=== PATIENT | male | born 1965 | race Caucasian/White ===

== ENCOUNTER → 2021-06-30 11:18 | Outpatient (BNVA) | payer OTHER, SELFPAY | PROVIDERS: PCP Family Medicine; Visit Provider Nurse Practitioner Family | DX: I50.9 Heart failure, unspecified (principal) | CPT/HCPCS: 80048 ==

== ENCOUNTER → 2021-08-12 16:11 | Outpatient (BNVA) | payer OTHER, SELFPAY | PROVIDERS: PCP Family Medicine; Visit Provider Nurse Practitioner Family | DX: I50.9 Heart failure, unspecified (principal); I26.92 Saddle embolus of pulmonary artery without acute cor pulmonale; I26.99 Other pulmonary embolism without acute cor pulmonale | CPT/HCPCS: 80048; 83880 ==

== ENCOUNTER 2021-09-08 11:25 | Outpatient (CLI) | payer OTHER, SELFPAY ==
--- NOTE | 2021-09-08 11:00 | USCV_ITS ---
Rahat Ashley Age: 56 Gender: M : 1965 Exam Date: 09/08/2021 11:41 Ordering Phys: Emely Mora Technologist: REI Exam Location: [facility] – [place] Indication: HISTORY OF SADDLE PE HISTORY: History of PE PROCEDURES: The venous duplex Doppler examination of both lower extremities was performed in the standard fashion. The following venous structures were evaluated: common femoral vein, profunda vein, proximal portion of the greater saphenous vein, superficial femoral vein, and the popliteal vein. In addition, the posterior tibial and peroneal trunk were evaluated. Serial compression, augmentation maneuvers, and spectral Doppler flow evaluation were performed. FINDINGS: .Evidence of acute partial deep vein thrombosis in the left common femoral vein throught the popliteal vein. Evidence of acute occlusive deep vein thrombosis in the left posterior tibial vein with abnormal flow dynamics. Normal 2-D Doppler and augmentation and compressibility throughout the right lower extremity venous structures. Additional imaging through the proximal calf veins also reveals no thrombus. Limited evaluation of the greater saphenous vein is patent with no thrombus.. Prelim to Dr. Pruett. CONCLUSIONS Acute left lower extremity deep venous thrombosis. Dr. Charlene Morales DO (Electronically Signed) Final Date: 08 September 2021 13:19 S
== END 2021-09-08 11:26 | disposition home or self-care (01) ==
PROVIDERS: PCP Family Medicine; Visit Provider Nurse Practitioner Family
DX: I26.92 Saddle embolus of pulmonary artery without acute cor pulmonale (principal); I82.402 Acute embolism and thrombosis of unspecified deep veins of left lower extremity
CPT/HCPCS: 93970

== ENCOUNTER 2021-09-09 09:24 | Outpatient (CLI) | payer OTHER, SELFPAY ==
--- NOTE | 2021-09-09 09:30 | USCV_ITS ---
Rahat Ashley Age: 56 Gender: M : 1965 Exam Date: 09/09/2021 09:53 Ordering Phys: Trevor Pruett MD ([email or web address]) Technologist: Exam Location: [facility] [place] Indication: HEART SIZE AFIF BP: 130 / 80 HR: 91 Rhythm: Sinus Technical Quality: Adequate MEASUREMENTS (Male / Female) Normal Values 2D ECHO LV Diastolic Diameter PLAX 4.6 cm 4.2 - 5.9 / 3.9 - 5.3 cm LV Systolic Diameter PLAX 2.9 cm IVS Diastolic Thickness 1.0 cm 0.6 - 1.0 / 0.6 - 0.9 cm IVS Systolic Thickness 1.3 cm LVPW Diastolic Thickness 0.9 cm 0.6 - 1.0 / 0.6 - 0.9 cm LVPW Systolic Thickness 1.7 cm LVOT Diameter 2.0 cm LV Ejection Fraction 2D Teich 66.3 % LV Ejection Fraction MOD 2C 68.6 % LV Ejection Fraction 2C AL 67.8 % LA Diameter 5.0 cm LA Width 4.0 cm LA Height 5.6 cm RA Width 4.3 cm RA Height 6.3 cm M-MODE Aortic Annulus Diameter 3.6 cm LA Ao Ratio MM 1.5 MV E Point Septal Separation 0.8 cm DOPPLER AV Peak Velocity 178.0 cm/s LVOT Peak Velocity 106.0 cm/s AV Area Cont Eq vti 2.3 cm squared AV Area Cont Eq pk 1.9 cm squared MV Area PHT 5.0 cm squared Mitral E to A Ratio 1.6 MV E' Velocity 143.0 cm/s TR Peak Velocity 192.4 cm/s TR Peak Gradient 14.8 mmHg TV Peak E Velocity 113.0 cm/s Right Atrial Pressure 3.0 mmHg Pulmonary Artery Systolic Pressu 17.8 mmHg FINDINGS Left Ventricle Normal left ventricular cavity size. Normal left ventricular systolic function. No regional wall motion abnormalities. Left ventricular ejection fraction is estimated at 66 %. In the presence of atrial fibrillation diastolic function cannot be assessed accurately. Right Ventricle The right ventricle is normal in size and function. Right Atrium Moderately increased right atrial size. Left Atrium Moderately increased left atrial size. Mitral Valve Structurally normal mitral valve without significant stenosis or prolapse. Moderate mitral valve regurgitation. Aortic Valve Moderate aortic valve calcification. Mild aortic valve stenosis, mean gradient 6 mmHg, SHARRI 2.3 cm squared. No aortic valve regurgitation. Tricuspid Valve Structurally normal tricuspid valve without significant stenosis , trace regurgitation. Pulmonary artery systolic pressure is normal. Pulmonic Valve Structurally normal pulmonic valve without significant stenosis. There is no pulmonic regurgitation. Pericardium Normal pericardium without effusion. Aorta Normal ascending aorta dimension. CONCLUSIONS 1-Normal left ventricular cavity size. Normal left ventricular systolic function. No regional wall motion abnormalities. Left ventricular ejection fraction is estimated at 66 %. In the presence of atrial fibrillation diastolic function cannot be assessed accurately. 2-Moderate biatrial enlargement 3-Moderate aortic valve calcification. Mild aortic valve stenosis, mean gradient 6 mmHg, SHARRI 2.3 cm squared. No aortic valve regurgitation. 4-Structurally normal mitral valve without significant stenosis or prolapse. Moderate mitral valve regurgitation. 5-Moderate aortic valve calcification. Mild aortic valve stenosis, mean gradient 6 mmHg, SHARRI 2.3 cm squared. No aortic valve regurgitation. 6-Structurally normal tricuspid valve without significant stenosis , trace regurgitation. Pulmonary artery systolic pressure is normal. 7-There is no pericardial effusion. 8-Right atrial pressure is around 5 mm of mercury. 9-There are no prior echocardiogram studies to compare. Trevor Pruett MD (Electronically Signed) Final Date: 09 September 2021 17:32 S
== END 2021-09-09 09:25 | disposition home or self-care (01) ==
LOC: RAD 09:24
PROVIDERS: PCP Family Medicine; Visit Provider Internal Medicine Cardiovascular Disease
DX: R06.02 Shortness of breath (principal); R00.2 Palpitations; I08.3 Combined rheumatic disorders of mitral, aortic and tricuspid valves
CPT/HCPCS: 93306

== ENCOUNTER 2021-09-13 09:41 | Outpatient (CLI) | payer OTHER, SELFPAY ==
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
== END 2021-09-13 09:42 | disposition home or self-care (01) ==
LOC: RAD 09:42
PROVIDERS: PCP Family Medicine; Visit Provider Nurse Practitioner Family
DX: S81.801A Unspecified open wound, right lower leg, initial encounter (principal); X58.XXXA Exposure to other specified factors, initial encounter; F17.210 Nicotine dependence, cigarettes, uncomplicated
CPT/HCPCS: 93925

== ENCOUNTER → 2021-11-02 15:06 | Outpatient (BNVA) | payer OTHER, SELFPAY | PROVIDERS: PCP Family Medicine; Visit Provider Internal Medicine | DX: I48.91 Unspecified atrial fibrillation (principal); I11.0 Hypertensive heart disease with heart failure; I50.9 Heart failure, unspecified; F17.210 Nicotine dependence, cigarettes, uncomplicated | CPT/HCPCS: 99214 ==

== ENCOUNTER → 2022-01-12 08:46 | Outpatient (BNVA) | payer OTHER, SELFPAY | PROVIDERS: PCP Family Medicine; Referring Provider Family Medicine; Visit Provider Internal Medicine | DX: E13.9 Other specified diabetes mellitus without complications (principal); E78.2 Mixed hyperlipidemia; G62.9 Polyneuropathy, unspecified; E34.9 Endocrine disorder, unspecified; Z86.711 Personal history of pulmonary embolism; F17.210 Nicotine dependence, cigarettes, uncomplicated; Z79.84 Long term (current) use of oral hypoglycemic drugs; Z79.4 Long term (current) use of insulin | CPT/HCPCS: 36415; 82947; 84681; 99204 ==

== ENCOUNTER → 2022-01-28 09:04 | Outpatient (BNVA) | payer OTHER, SELFPAY | PROVIDERS: PCP Family Medicine; Visit Provider Internal Medicine | DX: E13.9 Other specified diabetes mellitus without complications (principal); E78.2 Mixed hyperlipidemia; G62.9 Polyneuropathy, unspecified; E34.9 Endocrine disorder, unspecified; Z86.711 Personal history of pulmonary embolism; Z79.84 Long term (current) use of oral hypoglycemic drugs; F17.210 Nicotine dependence, cigarettes, uncomplicated; Z79.4 Long term (current) use of insulin | CPT/HCPCS: 99214 ==

== ENCOUNTER → 2022-03-15 13:05 | Outpatient (BNVA) | payer OTHER, SELFPAY | PROVIDERS: PCP Family Medicine; Visit Provider Internal Medicine | DX: I48.91 Unspecified atrial fibrillation (principal); I11.0 Hypertensive heart disease with heart failure; I50.9 Heart failure, unspecified; Z87.891 Personal history of nicotine dependence; R00.2 Palpitations | CPT/HCPCS: 80048; 83880; 99214 ==

== ENCOUNTER 2022-05-02 08:07 | Outpatient (CLI) | payer OTHER, SELFPAY ==
--- NOTE | 2022-05-02 08:00 | USCV_ITS ---
Rahat Ashley Age: 56 Gender: M : 1965 Exam Date: 05/02/2022 08:22 Ordering Phys: Domingo Morelos M.D ([email or web address]) Technologist: Makenzie Damon Exam Location: [facility] [place] Indication: hypertension BP: 127 / 84 HR: 89 Rhythm: Atrial fibrillation Technical Quality: Adequate MEASUREMENTS (Male / Female) Normal Values 2D ECHO LV Diastolic Diameter PLAX 4.2 cm 4.2 - 5.9 / 3.9 - 5.3 cm LV Systolic Diameter PLAX 2.3 cm IVS Diastolic Thickness 1.6 cm 0.6 - 1.0 / 0.6 - 0.9 cm IVS Systolic Thickness 2.1 cm LVPW Diastolic Thickness 1.3 cm 0.6 - 1.0 / 0.6 - 0.9 cm LVPW Systolic Thickness 1.9 cm LVOT Diameter 2.0 cm LV Ejection Fraction 2D Teich 75.8 % LV Ejection Fraction MOD 2C 50.9 % LV Ejection Fraction 2C AL 52.1 % LA Diameter 4.9 cm LA Width 4.1 cm LA Height 6.1 cm RA Width 4.2 cm RA Height 5.5 cm Aorta at Sinotubular Diameter 3.0 cm IVC Diameter 1.9 cm M-MODE MV E Point Septal Separation 0.4 cm DOPPLER AV Peak Velocity 140.0 cm/s LVOT Peak Velocity 85.0 cm/s AV Area Cont Eq vti 2.5 cm squared AV Area Cont Eq pk 2.0 cm squared MV Peak Velocity 133.0 cm/s MV Area PHT 4.0 cm squared Mitral E to A Ratio 7.8 MV E' Velocity 72.0 cm/s Mitral E to MV E' Ratio 13.6 Mitral E to LV E' Lateral Ratio 10.8 Mitral E to LV E' Septal Ratio 18.6 TR Peak Velocity 69.0 cm/s TR Peak Gradient 1.9 mmHg Right Atrial Pressure 3.0 mmHg Pulmonary Artery Systolic Pressu 4.9 mmHg PV Peak Velocity 73.0 cm/s RV Acceleration Time 0.1 s RV Ejection Time 0.3 s RV AcT/ET 0.4 FINDINGS Left Ventricle Left ventricle is normal in size. LV systolic function is normal with EF 55 to 60%. No regional wall motion abnormalities are seen Right Ventricle Normal in size and function Right Atrium Right atrium is normal in size Left Atrium Normal in size Mitral Valve Mild mitral annular calcification seen. Mild mitral regurgitation. No significant stenosis. Aortic Valve Aortic valve is normal structurally. No significant stenosis or regurgitation. Tricuspid Valve Trace tricuspid regurgitation. Insufficient TR jet to calculate RVSP Pulmonic Valve Nonvalvular Pericardium Normal Aorta Normal in size IVC IVC appears to be normal CONCLUSIONS LV systolic function normal with EF of 55 to 60%. Mild mitral annular calcification is seen. Mild mitral regurgitation Trace tricuspid regurgitation Comparison studies are available Domingo Morelos MD (Electronically Signed) Final Date: 14 May 2022 13:21 S
== END 2022-05-02 08:08 | disposition home or self-care (01) ==
LOC: RAD 08:08
PROVIDERS: PCP Family Medicine; Visit Provider Internal Medicine
DX: I10 Essential (primary) hypertension (principal); I08.1 Rheumatic disorders of both mitral and tricuspid valves
CPT/HCPCS: 93306

== ENCOUNTER → 2022-05-03 15:41 | Outpatient (BNVA) | payer OTHER, SELFPAY | PROVIDERS: PCP Family Medicine; Visit Provider Internal Medicine | DX: E11.9 Type 2 diabetes mellitus without complications (principal); E78.2 Mixed hyperlipidemia; G62.9 Polyneuropathy, unspecified; E34.9 Endocrine disorder, unspecified; Z86.711 Personal history of pulmonary embolism; F17.210 Nicotine dependence, cigarettes, uncomplicated; Z79.84 Long term (current) use of oral hypoglycemic drugs | CPT/HCPCS: 36415; 83036; 99214 ==

== ENCOUNTER → 2022-07-12 13:17 | Outpatient (BNVA) | payer OTHER, SELFPAY | PROVIDERS: PCP Family Medicine; Visit Provider Internal Medicine | DX: I48.91 Unspecified atrial fibrillation (principal); Z79.01 Long term (current) use of anticoagulants; I11.0 Hypertensive heart disease with heart failure; I50.9 Heart failure, unspecified; F17.210 Nicotine dependence, cigarettes, uncomplicated | CPT/HCPCS: 99214 ==

== ENCOUNTER 2022-09-29 11:55 | Outpatient (CLI) | payer OTHER, SELFPAY ==
--- NOTE | 2022-09-29 11:45 | MR_ITS ---
WS: [id number] MRI BRAIN WITHOUT AND WITH CONTRAST, ATTENTION DIRECTED TO THE PITUITARY GLAND HISTORY: pituitary gland abnormality COMPARISON: None available. TECHNIQUE: Diffusion-weighted imaging, axial T2 sequence, and postcontrast images in 3 planes are per formed. High-resolution coronal and sagittal imaging performed through the pituitary region with and without intravenous gadolinium. MultiHance 20 mL IV. Diffusion-weighted imaging is normal. Moderate T2 and FLAIR signal hyperintensities surrounding the l ateral ventricles and extending to the corpus callosum. Majority of these white matter lesions are pe rpendicular to the corpus callosum in a symmetric distribution. There are few at additional subcortic al white matter lesions. None of these lesions enhance. No significant atrophy and no prior infarct. The pituitary gland is normal size. No abnormal enhancement. Infundibulum and optic chiasm remain in normal positions. No enhancing mass is identified. Visualized koi of Allison with normal enhancement. Severe mucoperiosteal thickening throughout the LEFT maxillary sinus. No air-fluid levels. Mastoid ai r cells are clear. No calvarial lesions. MR/MR pituitary wo/w con* [id number] IMPRESSION: 1. No pituitary microadenoma or macroadenoma. Normal appearance of pituitary g land. 2. Periventricular and pericallosal white matter lesions. 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 Also within the different ial is small vessel ischemic disease. 3. No enhancing lesions are identified.
[2022-09-29] MEDS: gadobenate dimeglumine 20 mL vial IV (14:12)
== END 2022-09-29 11:56 | disposition home or self-care (01) ==
LOC: RAD 11:56
PROVIDERS: PCP Family Medicine; Visit Provider Internal Medicine
DX: E23.7 Disorder of pituitary gland, unspecified (principal)
CPT/HCPCS: 70553; A9577

== ENCOUNTER → 2023-01-10 15:07 | Outpatient (BNVA) | payer OTHER, SELFPAY | PROVIDERS: PCP Family Medicine; Visit Provider Internal Medicine | DX: E11.42 Type 2 diabetes mellitus with diabetic polyneuropathy (principal); E78.2 Mixed hyperlipidemia; E34.9 Endocrine disorder, unspecified; Z86.711 Personal history of pulmonary embolism; R90.82 White matter disease, unspecified; R00.0 Tachycardia, unspecified; Z79.84 Long term (current) use of oral hypoglycemic drugs | CPT/HCPCS: 36415; 80053; 80061; 82044; 83036; 84439; 84443; 84480; 99214 ==

== ENCOUNTER → 2023-01-11 15:42 | Outpatient (BNVA) | payer OTHER, SELFPAY | PROVIDERS: PCP Family Medicine; Visit Provider Internal Medicine | DX: I48.91 Unspecified atrial fibrillation (principal); Z79.01 Long term (current) use of anticoagulants; Z79.82 Long term (current) use of aspirin; I11.0 Hypertensive heart disease with heart failure; I50.9 Heart failure, unspecified; F17.210 Nicotine dependence, cigarettes, uncomplicated | CPT/HCPCS: 99214 ==

== ENCOUNTER → 2023-04-10 11:06 | Outpatient (BNVA) | payer OTHER, SELFPAY | PROVIDERS: PCP Family Medicine; Referring Provider Internal Medicine; Visit Provider Specialist | DX: R90.82 White matter disease, unspecified; I10 Essential (primary) hypertension; G95.9 Disease of spinal cord, unspecified; M54.12 Radiculopathy, cervical region; G37.9 Demyelinating disease of central nervous system, unspecified; E13.42 Other specified diabetes mellitus with diabetic polyneuropathy; Z79.84 Long term (current) use of oral hypoglycemic drugs; F17.210 Nicotine dependence, cigarettes, uncomplicated | CPT/HCPCS: 99204 ==

== ENCOUNTER → 2023-05-23 17:24 | Outpatient (BNVA) | payer OTHER, SELFPAY | PROVIDERS: PCP Family Medicine; Referring Provider Family Medicine; Visit Provider Internal Medicine Pulmonary Disease | DX: R91.8 Other nonspecific abnormal finding of lung field (principal); R91.1 Solitary pulmonary nodule; Z86.711 Personal history of pulmonary embolism; F17.210 Nicotine dependence, cigarettes, uncomplicated; Z79.01 Long term (current) use of anticoagulants | CPT/HCPCS: 36415; 99204 ==

== ENCOUNTER 2023-06-20 08:30 | Outpatient (CLI) | payer OTHER, SELFPAY ==
--- NOTE | 2023-06-20 08:30 | PETR_ITS ---
PROCEDURE INFORMATION: Exam: PET/CT Skull Base to Mid-thigh Exam date and time: 06/20/2023 9:37 AM Age: 57 years old Clinical indication: Abnormal findings; CT lung screen 02/14/2023; Additional info: Multiple pulmonary nodules LABS AND CLINICAL REPORTS: Glucose: 107 mg/dl Treatment strategy for malignancy (PET staging): Restaging (PS) TECHNIQUE: Imaging protocol: Following at least four-hour fasting and following the injection of radiopharmaceutical, low dose CT images were obtained. Then, PET images were obtained. Attenuation corrected images were constructed using the CT scan. Fused images of PET and CT were reviewed. The standardized uptake values (SUV) reported below are maximum values within a region of interest, expressed in gm/ml. Exam includes orbital meatal line to mid-thigh. Radiopharmaceutical: 11.56 mCi F-18 FDG (Fluorodeoxyglucose), IV. Time of imaging post radiopharmaceutical administration: 50.8 minutes. Injection site: Not specified. COMPARISON: 1. CT thoracic spin wo con* [id number] 05/11/2023. [facility] [place]. Images are available, but the report is not. 2. CT lung cancer screening 02/14/2023. [facility] [place]. Images are available, but the report is not. FINDINGS: Brain: Visualized brain has normal physiologic uptake. Pharynx: No abnormal uptake. Larynx: No abnormal uptake. Lungs, pleura and trachea: In the right upper lobe, at the inferolateral aspect of the posterior segment, a disc shaped soft tissue nodule causes upward retraction of the adjacent major fissure. On the comparison CT on 02/14/2023, it was 2.5 x 2.0 x 0.7 cm (measured on series 6, image 317 and series 7, image 306 of that study). Its size is unchanged on today's CT. It is not FDG avid. Its maximum SUV is only 0.8, which is consistent with scarring. The lungs are otherwise clear. No FDG avid pulmonary nodule. Heart: No cardiomegaly or pericardial effusion. Mediastinal space: No abnormal uptake. Liver: Hepatic cirrhotic morphology. The liver has a nodular contour. Caudate lobe is hypertrophied. No FDG avid hepatic mass. Gallbladder and bile ducts: No abnormal uptake. Pancreas: No abnormal uptake. Spleen: No abnormal uptake. Adrenal glands: No abnormal uptake. Kidneys and ureters: Normal physiologic uptake. Stomach and bowel: At the cecum, a focal area of FDG avidity has a maximum SUV of 12.7. It is approximately 1.9 x 3.5 x 2.8 cm (transverse x ant-post x craniocaudal) (image 191). Because there is no corresponding CT abnormality, it is most likely physiologic uptake at the ileocecal valve. Neoplasia cannot be excluded. Vasculature: Portal hypertension. A paraumbilical vein is recanalized adjacent to the falciform ligament. Lymph nodes: No abnormal uptake. No lymphadenopathy in the head, neck, chest, abdomen, pelvis or extremities. Bones/joints: No metabolically active areas. Soft tissues: No metabolically active areas. [id number] IMPRESSION: 1. In the right upper lobe, a stable disc shaped soft tissue nodule is 2.5 x 2.0 x 0.7 cm. It is not FDG avid. Its maximum SUV is only 0.8, which is consistent with scarring. It does not require imaging follow-up. 2. The lungs are otherwise clear. No FDG avid pulmonary nodule. 3. At the cecum, a focal area of FDG avidity is 1.9 x 3.5 x 2.8 cm. Its maximum SUV is 12.7. Because there is no corresponding CT abnormality, it is most likely physiologic uptake at the ileocecal valve, but neoplasia cannot be excluded. 4. Hepatic cirrhosis. No FDG avid hepatic mass. 5. Portal hypertension.
== END 2023-06-20 08:31 | disposition home or self-care (01) ==
LOC: RAD 06-21 08:23
PROVIDERS: PCP Family Medicine; Visit Provider Internal Medicine Pulmonary Disease
DX: R91.8 Other nonspecific abnormal finding of lung field (principal)
CPT/HCPCS: 78815; A9552

== ENCOUNTER 2023-07-19 08:10 | Outpatient (CLI) | payer OTHER, SELFPAY | END 2023-07-19 08:11 | disposition home or self-care (01) | LOC: RT 08:11 | PROVIDERS: PCP Family Medicine; Visit Provider Internal Medicine Pulmonary Disease | DX: J43.9 Emphysema, unspecified (principal) | CPT/HCPCS: 94010; 94618; 94726; 94729 ==

== ENCOUNTER → 2023-07-27 11:33 | Outpatient (BNVA) | payer OTHER, SELFPAY | PROVIDERS: PCP Family Medicine; Visit Provider Internal Medicine Cardiovascular Disease | DX: I11.0 Hypertensive heart disease with heart failure (principal); I50.9 Heart failure, unspecified; J43.9 Emphysema, unspecified; Z86.711 Personal history of pulmonary embolism; E13.9 Other specified diabetes mellitus without complications; F17.210 Nicotine dependence, cigarettes, uncomplicated; Z79.84 Long term (current) use of oral hypoglycemic drugs | CPT/HCPCS: 99214 ==

== ENCOUNTER 2023-08-03 14:17 | Emergency (ER) | payer OTHER, SELFPAY ==
[2023-08-03] VITALS (11 sets, daily range): BP systolic 114–183; BP diastolic 64–123; PULSE 85–98; RESP 15–18; TEMP 37.1; O2SAT 90–97
--- NOTE | 2023-08-03 14:23 | PC.PHAR ---
Addendum entered by Caitlyn Taylor 08/03/23 16:32: pt states he takes gabapentin 600mg takes 1200mg bid [facility] 600mg bid Addendum entered by Caitlyn Taylor 08/03/23 16:27: pt states he takes care of his own medications-pt states he was taking eliquis 5mg qam for a while but states the dr told him to go back to the 5mg bid today pt states had 5mg this am-pt states he takes lasix 80mg bid [facility] med list had 40mg qid prn-pt states he takes lisinopril 40mg daily [facility] med list has 20mg daily-pt states he takes kcl 20meq daily [facility] med list has 20meq daily prn-pt states he has a testosterone gel he uses every 2 days medication no on va med list-pt states he takes methocarbamol 750mg qam medication not on [facility] med list-pt states he takes metoprolol succinate er 200mg takes 100-200mg daily states he had a build up and told va to stop sending medication not on [facility] med list-unable to verify if pt really has from [facility] -notes are made in the pharmacy comments Original Note: faxed ct for med list
--- NOTE | 2023-08-03 14:33 | XR_ITS ---
WS: [id number] Left ankle, 3 views, 08/03/2023 Clinical Data: pain Comparison: None. Findings: There is an arthrodesis of the left ankle with an intramedullary clement extending from the distal third of the tibia into the talus. There is a longitudinal screw which extends through the calcaneus and into the distal intramedullary clement. There are old fractures of the distal left fibula and the medial malleolus. There is fragmentati on of the anterior calcaneus. The talonavicular articulation shows dissociation with the navicular el evated from its usual position. There is edema surrounding the ankle and proximal foot. Only the base of the left fifth metatarsal remains. Impression: 1. Arthrodesis of the left ankle with an intramedullary clement and orthopedic screws. 2. Old fractures of the medial malleolus and left fibula. 3. Fragmentation and dissociation of the bones of the mid and posterior foot.
--- NOTE | 2023-08-03 14:33 | ED_ITS ---
HPI - Extremity Problem 2 General: Chief complaint: Extremity Problem,Nontraumatic Stated complaint: Fever and chills/ Pain Time Seen by Provider: 08/03/23 14:23 [facility] ED 2 PFS: Medical History PETER (obstructive sleep apnea) Status post fracture of femur Carpal tunnel syndrome Saddle embolus of pulmonary artery HTN (hypertension), benign Atrial fibrillation CHF (congestive heart failure) Surgical History S/P hip replacement Family History Mother Cancer Hypertension Cataracts, bilateral Father Stroke CAD (coronary artery disease) Hypertension Social History Smoking and tobacco/nicotine status: current every day tobacco/nicotine user cigarettes Packs smoked per day: 1 Years cigarettes smoked: 31 [ Other cigarette details: Started at age 26] Alcohol intake: current Substance/Drug Use: current Other substance/drug use details: working no [employer] Course 2 Vital Signs: Vital signs: Vital Signs Temperature 98.8 F 08/03/23 14:29 Pulse Rate 93 08/03/23 18:01 Respiratory Rate 15 08/03/23 17:03 Blood Pressure 148/88 08/03/23 18:01 Pulse Oximetry 97 08/03/23 18:01 Oxygen Delivery Me thod Room Air 08/03/23 18:01 MDM - Extremity (Nontraumatic) Medical Decision Making Labs and imaging reviewed. Patient has a septic arthritis and involving the previous fracture and hardware in the left ankle. He had had this procedure done at [facility]. We have contacted [facility] clouded the images their orthopedist is reviewing them we are awaiting return call. Care signed out to Dr. Ríos at change of shift. See final notes for diagnosis and disposition. Medical Records I reviewed the patient's medical records. Lab Data I reviewed the patient's lab results. 08/03/23 14:39 08/03/23 14:39 Radiology Impressions Lower Extremity CT 08/03/23 15:26 IMPRESSION: 1. Extensive soft tissue gas in the heel, ankle joint, and within bone fragments of the fracture calcaneus. This is suspicious for soft tissue infection, septic ankle joint, and osteomyelitis in the calcaneus. Osteomyelitis within additional bones can not be excluded. MRI is more sensitive. 2. Sinus tract extending from the distal tip of the intramedullary clement to the plantar skin surface of the foot. 3. Non healed fractures involving the distal fibula, tibia, and calcaneus. 4. Extensive soft tissue edema/cellulitis in the lower leg, ankle, and foot. Laboratory Results WBC 11.29 10^3/uL (3.29-11.43) 08/03/23 14:39 RBC 5.30 10^6/uL (3.85-5.65) 08/03/23 14:39 Hgb 12.80 g/dL (11.27-16.99) 08/03/23 14:39 Hct 43.4 % (37-53) 08/03/23 14:39 MCV 81.9 fl (82-101) L 08/03/23 14:39 MCH 24.2 pg (27-33) L 08/03/23 14:39 MCHC 29.5 g/dL (30-55) L 08/03/23 14:39 RDW 21.8 % (12.1-15.1) H 08/03/23 14:39 Plt Count 386 10^3/cmm (157-399) 08/03/23 14:39 MPV 10.1 fL (7.4-10.4) 08/03/23 14:39 Neut % (Auto) 72.7 % 08/03/23 14:39 Lymph % (Auto) 17.6 % 08/03/23 14:39 [place] % (Auto) 7.8 % 08/03/23 14:39 Eos % (Auto) 1.2 % 08/03/23 14:39 Baso % (Auto) 0.4 % 08/03/23 14:39 Neut # (Auto) 8.20 10^3/uL (1.8-7.7) H 08/03/23 14:39 Lymph # (Auto) 2.0 10^3/uL (0.8-4.8) 08/03/23 14:39 [place] # (Auto) 0.9 10^3/uL (0.2-0.9) 08/03/23 14:39 Eos # (Auto) 0.1 10^3/uL (0.0-0.8) 08/03/23 14:39 Baso # (Auto) 0.1 10^3/uL (0.0-0.1) 08/03/23 14:39 Nucleated RBC % (auto) 0 % 08/03/23 14:39 Nucleated RBCs # 0.0 /100WBC 08/03/23 14:39 Sodium 131 mmol/L (136-145) L 08/03/23 14:39 Potassium 5.1 mmol/L (3.5-5.1) 08/03/23 14:39 Chloride 94 mmol/L (98-107) L 08/03/23 14:39 Carbon Dioxide 27 mmol/L (22-29) 08/03/23 14:39 Anion Gap 15.1 (5-19) 08/03/23 14:39 BUN 14 mg/dL (6-20) 08/03/23 14:39 Creatinine 1.0 mg/dL (0.7-1.2) 08/03/23 14:39 GFR Calculation 77.6 mL/min (90-130) L 08/03/23 14:39 Glucose 201 mg/dL (65-115) H 08/03/23 14:39 Calculated Osmolality 278 mOsm/kg (285-295) L 08/03/23 14:39 Calcium 8.8 mg/dL (8.5-10.5) 08/03/23 14:39 Total Bilirubin 1.0 mg/dL (0.15-1.2) 08/03/23 14:39 AST 24 U/L (0-40) 08/03/23 14:39 ALT 6 U/L (0-41) 08/03/23 14:39 Alkaline Phosphatase 147 U/L (40-130) H 08/03/23 14:39 Total Protein 7.4 g/dL (6.6-8.7) 08/03/23 14:39 Albumin 3.0 g/dL (3.5-5.2) L 08/03/23 14:39 Globulin 4.4 g/dL (1.3-4.6) 08/03/23 14:39 Discharge Plan Discharge Clinical Impression: Septic arthritis of left ankle, Osteomyelitis of ankle Condition: Stable Prescriptions: No Action cholecalciferol (vitamin D3) 50 mcg (2,000 unit) capsule 50 mcg PO QAM lisinopril 40 mg tablet 40 mg PO QAM magnesium oxide 400 mg magnesium capsule 400 mg PO QAM metoprolol succinate 200 mg tablet extended release 24 hr 100 - 200 mg PO DAILY albuterol sulfate 90 mcg/actuation HFA aerosol inhaler 2 puff inhalation Q6H PRN (Reason: shortness of breath or wheezing) Qty: 8.5 3RF furosemide 40 mg tablet 80 mg PO BID Eliquis 5 mg tablet 5 mg PO BID Qty: 60 3RF silver sulfadiazine 1 % Cream 1 applic TOPICAL DAILY PRN (Reason: unknown) gabapentin 600 mg Tablet 1,200 mg PO BID Fish Oil Concentrate 1,000 mg Capsule 1,000 mg PO BID Prilosec 40 mg Capsule,Delayed Release(Dr/Ec) 40 mg PO QAM sildenafil 100 mg Tablet 100 mg PO Q7D PRN (Reason: Erectile Dysfunction) Rx Instructions: limit 4 doses per month methocarbamol 750 mg Tablet 750 mg PO QAM metformin 500 mg Tablet Extended Release 24 Hr 500 mg PO QAM potassium chloride 20 mEq Tablet Extended Release 20 meq PO QAM alprostadil 10 mcg Syringe See Rx Instructions .ROUTE .COMPLEX Rx Instructions: 10 mcg intra-cavernosally as needed aspirin 325 mg tablet 325 mg PO QAM testosterone 1.62 % (20.25 mg/1.25 gram) Gel In Packet 1 packet transdermal .EVERY 2 DAYS Referrals: Allison Tinsley MD [Primary Care Provider] - Coding Level of Care Code ED Night Worker for James De Jesus
--- NOTE | 2023-08-03 14:47 | USCV_ITS ---
Gabi Rahat Age: 57 Gender: M : 1965 Exam Date: 08/03/2023 15:30 Ordering Phys: Luis Angulo DO Technologist: JHON Exam Location: [facility] [place] Indication: LE pain/swelling/sores HISTORY: Lower extremity pain. Lower extremity swelling. PROCEDURES: Venous duplex imaging was performed in only the left lower extremity. The following venous structures were evaluated: common femoral vein, profunda vein, proximal portion of the greater saphenous vein, superficial femoral vein, and the popliteal vein. In addition, the posterior tibial and peroneal trunk were evaluated. Serial compression, augmentation maneuvers, and spectral Doppler flow evaluation were performed. FINDINGS: No evidence of DVT seen in any vessel visualized at this time. CONCLUSIONS No evidence of left lower extremity DVT. Primitivo Hardin MD (Electronically Signed) Final Date: 03 August 2023 17:45 S
[2023-08-03 14:52] LABS: Basophils # 0.1 10^3/uL (0.0-0.1); Basophils % 0.4 %; Eosinophils # 0.1 10^3/uL (0.0-0.8); Eosinophils % 1.2 %; Hematocrit 43.4 % (37-53); Lymphocytes % 17.6 %; Mean Corpuscular HGB Conc 29.5 g/dL (30-55); Mean Corpuscular Hemoglobin 24.2 pg (27-33); Mean Corpuscular Volume 81.9 fl (82-101); Mean Platelet Volume 10.1 fL (7.4-10.4); Monocytes # 0.9 10^3/uL (0.2-0.9); Monocytes % 7.8 %; Neutrophils % 72.7 %; Nucleated Red Blood Cells % 0 %; Platelet Count 386 10^3/cmm (157-399); Red Cell Distribution Width 21.8 % (12.1-15.1); White Blood Count 11.29 10^3/uL (3.29-11.43)
[2023-08-03 15:11] LABS: Alanine Aminotransferase 6 U/L (0-41); Alkaline Phosphatase 147 U/L (40-130); Anion Gap 15.1 (5-19); Aspartate Amino Transferase 24 U/L (0-40); Blood Urea Nitrogen 14 mg/dL (6-20); Calcium 8.8 mg/dL (8.5-10.5); Carbon Dioxide 27 mmol/L (22-29); Chloride 94 mmol/L (98-107); Globulin 4.4 g/dL (1.3-4.6); Glomerular Filtration Rate 77.6 mL/min (90-130); Glucose 201 mg/dL (65-115); Osmolality Calculated 278 mOsm/kg (285-295); Potassium 5.1 mmol/L (3.5-5.1); Sodium 131 mmol/L (136-145); Total Protein 7.4 g/dL (6.6-8.7)
--- NOTE | 2023-08-03 15:26 | CTR_ITS ---
PROCEDURE INFORMATION: Exam: CT Left Lower Extremity With Contrast; Lower Leg Exam date and time: 08/03/2023 4:42 PM Age: 57 years old Clinical indication: Prior surgery; Surgery date: 1-6 months; Patient HX: Swelling of entire tib/fib to base of foot with draining wound from ankle/foot orif 05/31/2023; Additional info: Actively draining wound post op TECHNIQUE: Imaging protocol: CT of the left lower extremity with intravenous contrast was performed. Exam focused on the lower leg. Radiation optimization: All CT scans at this facility use at least one of these dose optimization techniques: automated exposure control; mA and/or kV adjustment per patient size (includes targeted exams where dose is matched to clinical indication); or iterative reconstruction. Contrast material: OMNI 350; Contrast volume: 100 ml; Contrast route: INTRAVENOUS (IV); REPORTING DATA: Count of CT and Cardiac NM exams in prior 12 months: This patient has received 3 known CTs and 0 known cardiac nuclear medicine studies in the 12 months prior to the current study. COMPARISON: CR XR ankle LT min 3V* [id number] 08/03/2023 2:44 PM RADIATION DOSE METRICS: Total DLP (mGy-cm): 1884.32 FINDINGS: Bones/joints: Intramedullary clement in the distal tibia and transversing the talus and calcaneus. Two proximal locking screws. Locking screws through the calcaneus and talus. Oblique displaced none healed fracture through the medial malleolus with some callus formation. Small non healed fracture in the posterior malleolus of the tibia. Oblique displaced non healed fracture through the distal fibula with some callus formation. Severely comminuted displaced non healed fracture through the mid calcaneus. Old screw tract in the posterior calcaneus. Subluxation of the talonavicular joint with anterior displacement of the navicular. Small bone fragment between the distal calcaneus and cuboid bone is most likely a fracture originating from the calcaneus. Gas-filled tract between the tip of the intramedullary clement in the calcaneus extending to the skin surface. Soft tissues: Soft tissue gas bubbles in the posterior and plantar heel, in the ankle joint, and between the bone fragments of the calcaneus. Subcutaneous soft tissue edema in the lower leg, ankle, and foot. CT/CT lower leg LT w con [id number] IMPRESSION: 1. Extensive soft tissue gas in the heel, ankle joint, and within bone fragments of the fracture calcaneus. This is suspicious for soft tissue infection, septic ankle joint, and osteomyelitis in the calcaneus. Osteomyelitis within additional bones can not be excluded. MRI is more sensitive. 2. Sinus tract extending from the distal tip of the intramedullary clement to the plantar skin surface of the foot. 3. Non healed fractures involving the distal fibula, tibia, and calcaneus. 4. Extensive soft tissue edema/cellulitis in the lower leg, ankle, and foot.
[2023-08-03] MEDS: iohexol 350 mg/mL 500 mL Btl (per mL) IV (16:48)
[2023-08-03] MEDS: vancomycin 1,000 MG in sodium chloride 0.9% 250 ML 250 MG IV (18:30)
--- NOTE | 2023-08-03 19:19 | ED_ITS ---
HPI - Extremity Problem 2 General: Chief complaint: Extremity Problem,Nontraumatic Stated complaint: Fever and chills/ Pain Time Seen by Provider: 08/03/23 14:23 [facility] ED 2 PFSH: Medical History PETER (obstructive sleep apnea) Status post fracture of femur Carpal tunnel syndrome Saddle embolus of pulmonary artery HTN (hypertension), benign Atrial fibrillation CHF (congestive heart failure) Surgical History S/P hip replacement Family History Mother Cancer Hypertension Cataracts, bilateral Father Stroke CAD (coronary artery disease) Hypertension Social History Smoking and tobacco/nicotine status: current every day tobacco/nicotine user cigarettes Packs smoked per day: 1 Years cigarettes smoked: 31 [ Other cigarette details: Started at age 26] Alcohol intake: current Substance/Drug Use: current Other substance/drug use details: working no [employer] Course 2 ED course: The transfer center at [facility] in [facility] was contacted and the patient is to be transferred from this ER to their ER and was excepted by usk the ER physician after they spoke with the surgeon that completed the procedure. Vital Signs: Vital signs: Vital Signs Temperature 98.8 F 08/03/23 14:29 Pulse Rate 98 08/03/23 18:42 Respiratory Rate 15 08/03/23 17:03 Blood Pressure 136/89 08/03/23 18:42 Pulse Oximetry 92 08/03/23 18:42 Oxygen Delivery Me thod Room Air 08/03/23 18:42 MDM - Extremity (Nontraumatic) Medical Records 57-year-old male presents to the emergency department with complaints of left lower leg drainage and pain. He is postoperative 7 weeks from a intramedullary clement due to a injury. He states he has had significant drainage and foul- smelling from the postoperative wound for several days and had the surgery at [facility]. Lab Data I reviewed the patient's lab results. 08/03/23 14:39 08/03/23 14:39 Radiology Impressions Lower Extremity CT 08/03/23 15:26 IMPRESSION: 1. Extensive soft tissue gas in the heel, ankle joint, and within bone fragments of the fracture calcaneus. This is suspicious for soft tissue infection, septic ankle joint, and osteomyelitis in the calcaneus. Osteomyelitis within additional bones can not be excluded. MRI is more sensitive. 2. Sinus tract extending from the distal tip of the intramedullary clement to the plantar skin surface of the foot. 3. Non healed fractures involving the distal fibula, tibia, and calcaneus. 4. Extensive soft tissue edema/cellulitis in the lower leg, ankle, and foot. Laboratory Results WBC 11.29 10^3/uL (3.29-11.43) 08/03/23 14:39 RBC 5.30 10^6/uL (3.85-5.65) 08/03/23 14:39 Hgb 12.80 g/dL (11.27-16.99) 08/03/23 14:39 Hct 43.4 % (37-53) 08/03/23 14:39 MCV 81.9 fl (82-101) L 08/03/23 14:39 MCH 24.2 pg (27-33) L 08/03/23 14:39 MCHC 29.5 g/dL (30-55) L 08/03/23 14:39 RDW 21.8 % (12.1-15.1) H 08/03/23 14:39 Plt Count 386 10^3/cmm (157-399) 08/03/23 14:39 MPV 10.1 fL (7.4-10.4) 08/03/23 14:39 Neut % (Auto) 72.7 % 08/03/23 14:39 Lymph % (Auto) 17.6 % 08/03/23 14:39 Carter % (Auto) 7.8 % 08/03/23 14:39 Eos % (Auto) 1.2 % 08/03/23 14:39 Baso % (Auto) 0.4 % 08/03/23 14:39 Neut # (Auto) 8.20 10^3/uL (1.8-7.7) H 08/03/23 14:39 Lymph # (Auto) 2.0 10^3/uL (0.8-4.8) 08/03/23 14:39 Carter # (Auto) 0.9 10^3/uL (0.2-0.9) 08/03/23 14:39 Eos # (Auto) 0.1 10^3/uL (0.0-0.8) 08/03/23 14:39 Baso # (Auto) 0.1 10^3/uL (0.0-0.1) 08/03/23 14:39 Nucleated RBC % (auto) 0 % 08/03/23 14:39 Nucleated RBCs # 0.0 /100WBC 08/03/23 14:39 Sodium 131 mmol/L (136-145) L 08/03/23 14:39 Potassium 5.1 mmol/L (3.5-5.1) 08/03/23 14:39 Chloride 94 mmol/L (98-107) L 08/03/23 14:39 Carbon Dioxide 27 mmol/L (22-29) 08/03/23 14:39 Anion Gap 15.1 (5-19) 08/03/23 14:39 BUN 14 mg/dL (6-20) 08/03/23 14:39 Creatinine 1.0 mg/dL (0.7-1.2) 08/03/23 14:39 GFR Calculation 77.6 mL/min (90-130) L 08/03/23 14:39 Glucose 201 mg/dL (65-115) H 08/03/23 14:39 Calculated Osmolality 278 mOsm/kg (285-295) L 08/03/23 14:39 Calcium 8.8 mg/dL (8.5-10.5) 08/03/23 14:39 Total Bilirubin 1.0 mg/dL (0.15-1.2) 08/03/23 14:39 AST 24 U/L (0-40) 08/03/23 14:39 ALT 6 U/L (0-41) 08/03/23 14:39 Alkaline Phosphatase 147 U/L (40-130) H 08/03/23 14:39 Total Protein 7.4 g/dL (6.6-8.7) 08/03/23 14:39 Albumin 3.0 g/dL (3.5-5.2) L 08/03/23 14:39 Globulin 4.4 g/dL (1.3-4.6) 08/03/23 14:39 All radiology interpretation(s) finalized by discharge Discharge Plan Discharge Patient Disposition: Transfer to ED Clinical Impression: Septic arthritis of left ankle, Osteomyelitis of ankle Condition: Stable Prescriptions: No Action cholecalciferol (vitamin D3) 50 mcg (2,000 unit) capsule 50 mcg PO QAM lisinopril 40 mg tablet 40 mg PO QAM magnesium oxide 400 mg magnesium capsule 400 mg PO QAM metoprolol succinate 200 mg tablet extended release 24 hr 100 - 200 mg PO DAILY albuterol sulfate 90 mcg/actuation HFA aerosol inhaler 2 puff inhalation Q6H PRN (Reason: shortness of breath or wheezing) Qty: 8.5 3RF furosemide 40 mg tablet 80 mg PO BID Eliquis 5 mg tablet 5 mg PO BID Qty: 60 3RF silver sulfadiazine 1 % Cream 1 applic TOPICAL DAILY PRN (Reason: unknown) gabapentin 600 mg Tablet 1,200 mg PO BID Fish Oil Concentrate 1,000 mg Capsule 1,000 mg PO BID Prilosec 40 mg Capsule,Delayed Release(Dr/Ec) 40 mg PO QAM sildenafil 100 mg Tablet 100 mg PO Q7D PRN (Reason: Erectile Dysfunction) Rx Instructions: limit 4 doses per month methocarbamol 750 mg Tablet 750 mg PO QAM metformin 500 mg Tablet Extended Release 24 Hr 500 mg PO QAM potassium chloride 20 mEq Tablet Extended Release 20 meq PO QAM alprostadil 10 mcg Syringe See Rx Instructions .ROUTE .COMPLEX Rx Instructions: 10 mcg intra-cavernosally as needed aspirin 325 mg tablet 325 mg PO QAM testosterone 1.62 % (20.25 mg/1.25 gram) Gel In Packet 1 packet transdermal .EVERY 2 DAYS Referrals: Allison Tinsley MD [Primary Care Provider] - Coding Level of Care Code ED Plaster Block Layer for James De Jesus
[2023-08-03] MEDS: ondansetron 2 mg/ML SDV 2 mL 4 MG IVP (20:10)
[2023-08-03] MEDS: morphine 4 mg/mL SDV 1 mL IVP (20:11)
[2023-08-04 12:45] LABS: Bacillus cereus group Not Detected (NOT DETECT); Bacillus subtillis group Not Detected (NOT DETECT); Corynebacterium Not Detected (NOT DETECT); Cutibacterium acnes (P.acnes) Not Detected (NOT DETECT); Enterococcus Not Detected (NOT DETECT); Enterococcus faecalis Not Detected (NOT DETECT); Enterococcus faecium Not Detected (NOT DETECT); Lactobacillus species Not Detected (NOT DETECT); Listeria Not Detected (NOT DETECT); Listeria monocytogenes Not Detected (NOT DETECT); Micrococcus Not Detected (NOT DETECT); Pan Candida Not Detected (NOT DETECT); Pan Gram-Negative Not Detected (NOT DETECT); Staphylococcus epidermidis Not Detected (NOT DETECT); Staphylococcus lugdunensis Not Detected (NOT DETECT); Staphylococcus species Detected (NOT DETECT); Streptococcus agalactiae Not Detected (NOT DETECT); Streptococcus anginosus group Not Detected (NOT DETECT); Streptococcus pneumoniae Not Detected (NOT DETECT); Streptococcus pyogenes Not Detected (NOT DETECT); Streptococcus species Not Detected (NOT DETECT); mecA Not Detected (NOT DETECT); mecC Not Detected (NOT DETECT)
--- NOTE | 2023-08-07 06:08 | ED_ITS ---
HPI - Extremity Problem 2 General: Chief complaint: Extremity Problem,Nontraumatic Stated complaint: Fever and chills/ Pain Time Seen by Provider: 08/03/23 14:23 Source: patient Mode of arrival: EMS History of Present Illness: 57-year-old male presents to the emergen cy room via EMS with swelling in his left ankle extending into his foot. 7 weeks ago the patient had a severe fracture of the left ankle underwent ORIF with a intramedullary clemetn of the distal tibia was placed from a inferior aspect through the calcaneus into the tibia. There is other screws and hardware in place as well. Over the last couple of days he has noticed increased swelling and significant amount of drainage from the incision in the heel. He has had a low-grade fever. No vomiting or diarrhea. Is also had some mild increasing aching and discomfort in the leg. He was at the [facility] today and was sent to the emergency room via EMS. MD Complaint: extremity pain and extremity swelling Onset (ago): day(s) Pain Consistency: constant Location: left and lower extremity Radiation: distal Relieving factors: nothing Exacerbating factors: nothing Associated symptoms: Deny chest pain, fever(s) or rash Review of Systems 2 Const: Denies: fever(s) or chills Card: Denies: chest pain Resp: Denies: dyspnea GI: Denies: abdominal pain : Denies: dysuria, urinary frequency or urinary urgency Musc: Denies: neck pain or back pain Skin/Breast: Denies: rash PFSH ED 2 PFSH: Medical History PETER (obstructive sleep apnea) Status post fracture of femur Carpal tunnel syndrome Saddle embolus of pulmonary artery HTN (hypertension), benign Atrial fibrillation CHF (congestive heart failure) Surgical History S/P hip replacement Family History Mother Cancer Hypertension Cataracts, bilateral Father Stroke CAD (coronary artery disease) Hypertension Social History Smoking and tobacco/nicotine status: current every day tobacco/nicotine user cigarettes Packs smoked per day: 1 Years cigarettes smoked: 31 [ Other cigarette details: Started at age 26] Alcohol intake: current Substance/Drug Use: current Other substance/drug use details: working no gettting medical card Physical Exam 2 Const: GENERAL APPEARANCE: cooperative ORIENTATION/CONSCIOUSNESS: Yes awake, Yes oriented to person, Yes oriented to place and Yes oriented to time HENMT: COMMON NORMALS: normocephalic, atraumatic and hearing grossly normal bilaterally HEAD & SCALP: normocephalic and atraumatic Resp: COMMON NORMALS: normal respiratory effort, No retractions, No use of accessory muscles and clear to auscultation bilaterally AUSCULTATION: clear to auscultation bilaterally Cardio: COMMON NORMALS: regular rate, regular rhythm and No murmurs present (Cardio) RATE: regular rate RHYTHM: regular rhythm GI: COMMON NORMALS: Soft to palpation and No hepatosplenomegaly present A USCULTATION: Yes normoactive bowel sounds PALPATION: Yes Soft to palpation, No Tenderness to palpation present (GI), No Guarding due to palpation present (GI) and Yes No hepatosplenomegaly present Extremity: OTHER: She reports swelling of the left lower leg with purulent drainage from the heel incision. With palpation of the calf heel incision drains purulent fluid. Neuro: SENSORIUM/ORIENTATION: Yes oriented to person, Yes oriented to place and Yes oriented to time Skin: COMMON NORMALS: no rashes or lesions noted GENERAL SKIN EXAM: no rashes or lesions noted Course 2 Vital Signs: Vital signs: Vital Signs Temperature 98.8 F 08/03/23 14:29 Pulse Rate 93 08/03/23 21:49 Respiratory Rate 18 08/03/23 22:19 Blood Pressure 114/64 08/03/23 22:19 Pulse Oximetry 93 08/03/23 22:19 Oxygen Delivery Me thod Room Air 08/03/23 21:49 MDM - Extremity (Nontraumatic) Medical Decision Making CT shows extensive gas along the tract of the medullary clement as well as the fracture itself extending into the tibia. Patient has had cultures and started on IV antibiotics (vancomycin). He was also significantly hypertension he was given hydralazine for his blood pressure. Reviewing labs and x-ray patient will require orthopedic consultation likely need to have the joint washed out and have the hardware removed at minimum may require more aggressive treatment. Contacted [facility] in [place] where the patient initially had surgery. Will transfer ER to ER. Patient transferred via [facility] ambulance. Medical Records I reviewed the patient's medical records. Lab Data I reviewed the patient's lab results. 08/03/23 14:39 08/03/23 14:39 Radiology Impressions Lower Extremity CT 08/03/23 15:26 IMPRESSION: 1. Extensive soft tissue gas in the heel, ankle joint, and within bone fragments of the fracture calcaneus. This is suspicious for soft tissue infection, septic ankle joint, and osteomyelitis in the calcaneus. Osteomyelitis within additional bones can not be excluded. MRI is more sensitive. 2. Sinus tract extending from the distal tip of the intramedullary clement to the plantar skin surface of the foot. 3. Non healed fractures involving the distal fibula, tibia, and calcaneus. 4. Extensive soft tissue edema/cellulitis in the lower leg, ankle, and foot. Laboratory Results WBC 11.29 10^3/uL (3.29-11.43) 08/03/23 14:39 RBC 5.30 10^6/uL (3.85-5.65) 08/03/23 14:39 Hgb 12.80 g/dL (11.27-16.99) 08/03/23 14:39 Hct 43.4 % (37-53) 08/03/23 14:39 MCV 81.9 fl (82-101) L 08/03/23 14:39 MCH 24.2 pg (27-33) L 08/03/23 14:39 MCHC 29.5 g/dL (30-55) L 08/03/23 14:39 RDW 21.8 % (12.1-15.1) H 08/03/23 14:39 Plt Count 386 10^3/cmm (157-399) 08/03/23 14:39 MPV 10.1 fL (7.4-10.4) 08/03/23 14:39 Neut % (Auto) 72.7 % 08/03/23 14:39 Lymph % (Auto) 17.6 % 08/03/23 14:39 Williams % (Auto) 7.8 % 08/03/23 14:39 Eos % (Auto) 1.2 % 08/03/23 14:39 Baso % (Auto) 0.4 % 08/03/23 14:39 Neut # (Auto) 8.20 10^3/uL (1.8-7.7) H 08/03/23 14:39 Lymph # (Auto) 2.0 10^3/uL (0.8-4.8) 08/03/23 14:39 Williams # (Auto) 0.9 10^3/uL (0.2-0.9) 08/03/23 14:39 Eos # (Auto) 0.1 10^3/uL (0.0-0.8) 08/03/23 14:39 Baso # (Auto) 0.1 10^3/uL (0.0-0.1) 08/03/23 14:39 Nucleated RBC % (auto) 0 % 08/03/23 14:39 Nucleated RBCs # 0.0 /100WBC 08/03/23 14:39 Sodium 131 mmol/L (136-145) L 08/03/23 14:39 Potassium 5.1 mmol/L (3.5-5.1) 08/03/23 14:39 Chloride 94 mmol/L (98-107) L 08/03/23 14:39 Carbon Dioxide 27 mmol/L (22-29) 08/03/23 14:39 Anion Gap 15.1 (5-19) 08/03/23 14:39 BUN 14 mg/dL (6-20) 08/03/23 14:39 Creatinine 1.0 mg/dL (0.7-1.2) 08/03/23 14:39 GFR Calculation 77.6 mL/min (90-130) L 08/03/23 14:39 Glucose 201 mg/dL (65-115) H 08/03/23 14:39 Calculated Osmolality 278 mOsm/kg (285-295) L 08/03/23 14:39 Calcium 8.8 mg/dL (8.5-10.5) 08/03/23 14:39 Total Bilirubin 1.0 mg/dL (0.15-1.2) 08/03/23 14:39 AST 24 U/L (0-40) 08/03/23 14:39 ALT 6 U/L (0-41) 08/03/23 14:39 Alkaline Phosphatase 147 U/L (40-130) H 08/03/23 14:39 Total Protein 7.4 g/dL (6.6-8.7) 08/03/23 14:39 Albumin 3.0 g/dL (3.5-5.2) L 08/03/23 14:39 Globulin 4.4 g/dL (1.3-4.6) 08/03/23 14:39 All radiology interpretation(s) finalized by discharge Discharge Plan Discharge Patient Disposition: Transfer to ED Clinical Impression: Septic arthritis of left ankle, Osteomyelitis of ankle Condition: Stable Prescriptions: No Action cholecalciferol (vitamin D3) 50 mcg (2,000 unit) capsule 50 mcg PO QAM lisinopril 40 mg tablet 40 mg PO QAM magnesium oxide 400 mg magnesium capsule 400 mg PO QAM metoprolol succinate 200 mg tablet extended release 24 hr 100 - 200 mg PO DAILY albuterol sulfate 90 mcg/actuation HFA aerosol inhaler 2 puff inhalation Q6H PRN (Reason: shortness of breath or wheezing) Qty: 8.5 3RF furosemide 40 mg tablet 80 mg PO BID Eliquis 5 mg tablet 5 mg PO BID Qty: 60 3RF silver sulfadiazine 1 % Cream 1 applic TOPICAL DAILY PRN (Reason: unknown) gabapentin 600 mg Tablet 1,200 mg PO BID Fish Oil Concentrate 1,000 mg Capsule 1,000 mg PO BID Prilosec 40 mg Capsule,Delayed Release(Dr/Ec) 40 mg PO QAM sildenafil 100 mg Tablet 100 mg PO Q7D PRN (Reason: Erectile Dysfunction) Rx Instructions: limit 4 doses per month methocarbamol 750 mg Tablet 750 mg PO QAM metformin 500 mg Tablet Extended Release 24 Hr 500 mg PO QAM potassium chloride 20 mEq Tablet Extended Release 20 meq PO QAM alprostadil 10 mcg Syringe See Rx Instructions .ROUTE .COMPLEX Rx Instructions: 10 mcg intra-cavernosally as needed aspirin 325 mg tablet 325 mg PO QAM testosterone 1.62 % (20.25 mg/1.25 gram) Gel In Packet 1 packet transdermal .EVERY 2 DAYS Referrals: Allison Tinsley MD [Primary Care Provider] - Coding Level of Care Code ED Administrator Social Welfare for James De Jesus
== END 2023-08-03 22:20 ==
PROVIDERS: Family Medicine; Emergency Provider Internal Medicine; PCP Family Medicine
DX: M00.872 Arthritis due to other bacteria, left ankle and foot (principal); M86.8X7 Other osteomyelitis, ankle and foot; Z79.01 Long term (current) use of anticoagulants; Z79.82 Long term (current) use of aspirin; I11.0 Hypertensive heart disease with heart failure; I50.9 Heart failure, unspecified; F17.210 Nicotine dependence, cigarettes, uncomplicated; M79.89 Other specified soft tissue disorders
CPT/HCPCS: 36415; 73610; 73701; 80053; 85025; 87040; 87077; 87186; 87205; 93971; 96365; 96375; 99285; J2270; J2405; J3370; J7050; Q9967

== ENCOUNTER → 2023-09-26 08:12 | Outpatient (BNVA) | payer OTHER, SELFPAY | PROVIDERS: PCP Family Medicine; Referring Provider Family Medicine; Visit Provider Surgery | DX: Z12.11 Encounter for screening for malignant neoplasm of colon (principal) | CPT/HCPCS: 99203 ==

== ENCOUNTER → 2023-10-19 10:56 | Outpatient (BNVA) | payer OTHER, SELFPAY | PROVIDERS: PCP Family Medicine; Referring Provider Family Medicine; Visit Provider Physician Assistant | DX: M75.41 Impingement syndrome of right shoulder; M19.011 Primary osteoarthritis, right shoulder | CPT/HCPCS: 20610; 73030; 99203; J3301 ==

== ENCOUNTER → 2023-10-26 08:36 | Outpatient (BNVA) | payer OTHER, SELFPAY | PROVIDERS: PCP Family Medicine; Visit Provider Internal Medicine Pulmonary Disease | DX: R91.8 Other nonspecific abnormal finding of lung field (principal); J43.9 Emphysema, unspecified; Z86.711 Personal history of pulmonary embolism; F17.210 Nicotine dependence, cigarettes, uncomplicated | CPT/HCPCS: 99214 ==

== ENCOUNTER 2023-11-14 08:56 | Outpatient (CLI) | payer OTHER, SELFPAY ==
--- NOTE | 2023-11-14 08:45 | MR_ITS ---
WS: [id number] MRI RIGHT SHOULDER HISTORY: right shoulder pain COMPARISON: 10/19/2023 radiograph TECHNIQUE: Multiplanar sequences of the shoulder joint are submitted. Mild AC joint arthritis. Small osteophytes of the distal clavicle and acromion. Small amount of fluid in the subacromial and subdeltoid bursa. 4 mm osteophyte from the distal undersurface of the acromio n with mild subacromial impingement. No os acromion. Normal position of the biceps tendon. Focal small insertion site tear supraspinatus tendon with adjacent tendinopathy in the more proximal tendon. There is surface fraying along both the bursal and articular surfaces of the supraspinatus te ndon. Infraspinatus and subscapularis tendons are intact. Mild cystic changes along the posterolatera l humeral head. Focal tear in the superior labrum with adjacent intrasubstance degeneration. Mild narrowing of the gl enohumeral joint. Mild loss of cartilage. IMPRESSION: 1. Small insertion site tear of the supraspinatus with additional marked tendinopathy in the more pr oximal tendon. No muscle atrophy. 2. Superior labral tear. 3. Mild AC joint arthritis. 4. Mild subacromial impingement.
== END 2023-11-14 08:57 | disposition home or self-care (01) ==
LOC: RAD 08:57
PROVIDERS: PCP Family Medicine; Visit Provider Physician Assistant
DX: S43.431A Superior glenoid labrum lesion of right shoulder, initial encounter (principal); X58.XXXA Exposure to other specified factors, initial encounter; M75.41 Impingement syndrome of right shoulder; M19.011 Primary osteoarthritis, right shoulder
CPT/HCPCS: 73221

== ENCOUNTER 2023-12-21 09:00 | Day surgery (SDC) | payer OTHER, SELFPAY ==
[2023-12-21 09:29] VITALS: BP 139/110; PULSE 88; RESP 16; TEMP 36.1; O2SAT 96; BMI 30.6
--- NOTE | 2023-12-21 09:39 | ANES.PREANE2 ---
Pre-Anesthetic Assessment Height/Weight: Height 1.98 m Weight 120.202 kg Temp Pulse Resp BP Pulse Ox O2 Del Method 97.0 F L 88 16 139/110 96 Room Air 12/21/23 09:12/21/23 09:29 12/21/23 09:29 12/21/23 09:29 12/21/23 09:29 12/21/23 09:29 Operation Date: 12/21/23 09:55 Proposed Procedures p [id number] colon G0105 screen colon H risk Z12.11(Not Applicable) - Ben Bansal MD Familial anesthetic complications: woke up in surgery Was Beta Geo taken within 24 hours: Yes Was Clonidine taken within 24 hours: N/A Last intake: Intake Last Liquid Date 12/20/23 Last Liquid Time 23:30 Last Solid Date 12/19/23 Last Solid Time 21:00 Social Alcohol (former) and Tobacco 1 pack(s) per day Exam alert and oriented x 3 Airway Submandibular: within normal limits Cervical ROM: within normal limits Mallampati: Class III Dentition: full Pulmonary Asthma and Chronic Obstructive Pulmonary Disease PE CV/HEM Atrial Fibrillation, Arrythmia, Congestive Heart Failure, Deep Vein Thrombosis, Hypertension and Peripheral Vascular Disease None reported Hepatic None reported GI Gastroesophageal Reflux Disease Metabolic Diabetes Mellitus and Hyperlipidemia Neuropsych Seizure (while in hospital with blood clots) Anesthetic Plan ASA status: 3 Anesthesia: Anesthesia Evaluation, General and MAC Risk of > 500 ml blood loss (7ml/kg in children): No Medications/Allergies Home Medications Medication Instructions Recorded Confirmed Last Taken Type cholecalciferol (vitamin D3) 50 50 mcg PO QAM 06/22/21 12/18/23 12/19/23 History mcg (2,000 unit) capsule lisinopril 40 mg tablet 40 mg PO QAM 06/22/21 12/18/23 12/19/23 History metoprolol succinate 200 mg 100 - 200 mg PO DAILY 06/22/21 12/18/23 12/21/23 07:00 History tablet,extended release 24 hr apixaban 5 mg tablet (Eliquis) 5 mg PO BID #60 tabs 02/14/22 12/18/23 12/18/23 Rx albuterol sulfate 90 mcg/actuation 2 puff inhalation Q6H PRN 05/23/23 12/18/23 12/19/23 Rx aerosol inhaler shortness of breath or wheezing #8.5 grams furosemide 40 mg tablet 80 mg PO BID 07/27/23 12/18/23 12/21/23 07:00 History alprostadil 10 mcg intracavernosal See Rx Instructions .Route .COMPLEX 08/03/23 12/18/23 1 Week Ago History syringe ~12/11/23 aspirin 325 mg tablet 325 mg PO QAM 08/03/23 12/18/23 12/14/23 History gabapentin 600 mg tablet 1,200 mg PO BID 08/03/23 12/18/23 12/21/23 07:00 History metformin 500 mg tablet,extended 500 mg PO QAM 08/03/23 12/18/23 12/19/23 History release 24 hr omega-3 fatty acids 1,000 mg 1,000 mg PO BID 08/03/23 12/18/23 12/19/23 History capsule omeprazole 40 mg capsule,delayed 40 mg PO QAM 08/03/23 12/18/23 12/19/23 History release potassium chloride 20 mEq 20 meq PO QAM 08/03/23 12/18/23 12/19/23 History tablet,extended release sildenafil 100 mg tablet 100 mg PO Q7D PRN Erectile 08/03/23 12/18/23 12/14/23 History Dysfunction testosterone 1.62 % (20.25 mg/1.25 1 packet transdermal .EVERY 2 DAYS 08/03/23 12/21/23 1 Week Ago History gram) transdermal gel packet ~12/14/23 calcium carbonate 500 mg-vitamin 1 tab PO ONCE 09/26/23 12/18/23 12/19/23 History D3 5 mcg (200 unit) tablet (Oyster Shell Calcium-Vitamin D3) docusate sodium 100 mg tablet 100 mg PO DAILY #4 tabs 09/26/23 12/18/23 12/19/23 Rx duloxetine 30 mg capsule,delayed mg PO 09/26/23 10/26/23 12/19/23 History release magnesium citrate 300 ml PO DAILY constipation #296 09/26/23 10/26/23 12/19/23 Rx mL Allergies Allergy/AdvReac Type Severity Reaction Status Date / Time No Known Allergies Allergy Verified 10/26/23 08:56 [facility] Anesthesia Medical History PETER (obstructive sleep apnea) Status post fracture of femur Carpal tunnel syndrome Saddle embolus of pulmonary artery HTN (hypertension), benign Atrial fibrillation CHF (congestive heart failure) Surgical History S/P hip replacement Family History Mother Cancer Hypertension Cataracts, bilateral Father Stroke CAD (coronary artery disease) Hypertension Social History Smoking and tobacco/nicotine status: former use of tobacco/nicotine Quit status (tobacco/nicotine): has quit using Year quit tobacco: 07/2023 Former quit date comment: 1 ppd X 32 years Alcohol intake: current Substance/Drug Use: current Other substance/drug use details: working no gettting medical card Data Anesthesia Cardiac Studies: Echocardiogram 05/02/22
[2023-12-21] MEDS: sodium chloride 0.9% 1,000 ML 30 ML IV (09:42)
[2023-12-21 09:55] LABS: Glucose Point of Care 140 mg/dL (70-110)
--- NOTE | 2023-12-21 09:57 | W.PM.OPSFHP ---
Same Day Surgery H&P Indication for Procedure/HPI DATE OF PROCEDURE: December 21, 2023 CHIEF COMPLAINT/INDICATIONFOR SURGICAL PROCEDURE: need for screening colonoscopy PREOP DIAGNOSIS: need for screening colonoscopy PLANNED PROCEDURE: Operation Date: 12/21/23 09:55 Pro[place] Procedures p 84129 colon G0105 screen colon H risk Z12.11(Not Applicable) - Ben Bansal MD Medications/Allergies* Home Medications Medication Instructions Recorded Confirmed Type cholecalciferol (vitamin D3) 50 50 mcg PO QAM 06/22/21 12/18/23 History mcg (2,000 unit) capsule lisinopril 40 mg tablet 40 mg PO QAM 06/22/21 12/18/23 History metoprolol succinate 200 mg 100 - 200 mg PO DAILY 06/22/21 12/18/23 History tablet,extended release 24 hr furosemide 40 mg tablet 80 mg PO BID 07/27/23 12/18/23 History alprostadil 10 mcg intracavernosal See Rx Instructions .Route .COMPLEX 08/03/23 12/18/23 History syringe aspirin 325 mg tablet 325 mg PO QAM 08/03/23 12/18/23 History gabapentin 600 mg tablet 1,200 mg PO BID 08/03/23 12/18/23 History metformin 500 mg tablet,extended 500 mg PO QAM 08/03/23 12/18/23 History release 24 hr omega-3 fatty acids 1,000 mg 1,000 mg PO BID 08/03/23 12/18/23 History capsule omeprazole 40 mg capsule,delayed 40 mg PO QAM 08/03/23 12/18/23 History release potassium chloride 20 mEq 20 meq PO QAM 08/03/23 12/18/23 History tablet,extended release sildenafil 100 mg tablet 100 mg PO Q7D PRN Erectile 08/03/23 12/18/23 History Dysfunction testosterone 1.62 % (20.25 mg/1.25 1 packet transdermal .EVERY 2 DAYS 08/03/23 12/21/23 History gram) transdermal gel packet calcium carbonate 500 mg-vitamin 1 tab PO ONCE 09/26/23 12/18/23 History D3 5 mcg (200 unit) tablet (Oyster Shell Calcium-Vitamin D3) duloxetine 30 mg capsule,delayed mg PO 09/26/23 10/26/23 History release Allergies/Adverse Reactions Allergy/AdvReac Type Severity Reaction Status Date / Time No Known Allergies Allergy Verified 10/26/23 08:56 Current Medications: Generic Name Dose Route Start Last Admin Trade Name Freq PRN Reason Stop Dose Admin Sodium Chloride 1,000 mls @ 30 mls/hr 12/21/23 07:15 12/21/23 09:42 Sodium Chloride 0.9% IV 12/22/23 07:14 30 mls/hr .Q24H WILMA Administration Pertinent History/Comorbid Conditions* Medical History (Updated 10/19/23 @ 11:46 by JOSE MARTIN Ogden) PETER (obstructive sleep apnea) Status post fracture of femur Carpal tunnel syndrome Saddle embolus of pulmonary artery HTN (hypertension), benign Atrial fibrillation CHF (congestive heart failure) Surgical History (Updated 01/16/22 @ 21:52 by Laurent Rdz MD) S/P hip replacement Family History (Updated 06/22/21 @ 08:10 by Coral Varela RN) Cataracts, bilateral Mother CAD (coronary artery disease) Father Cancer Mother Hypertension Mother Father Stroke Father Social History Smoking and tobacco/nicotine status: former use of tobacco/nicotine Quit status (tobacco/nicotine): has quit using Year quit tobacco: 07/2023 Former quit date comment: 1 ppd X 32 years Alcohol intake: current Substance/Drug Use: current Other substance/drug use details: working no gettting medical card Pertinent Exam Findings alert, oriented x 3, clear to auscultation bilaterally and regular rate & rhythm Recommendations Surgery/Procedure today Coding Level of Care Code Acute Code for Chg Fwd
[2023-12-21 10:43] VITALS: BP 119/95; PULSE 99; RESP 18; TEMP 36.1; O2SAT 93
[2023-12-21 10:59] VITALS: BP 108/89; PULSE 87; RESP 16; O2SAT 96
--- NOTE | 2023-12-21 11:09 | ANE.PACU2 ---
Inpatient post-anesthesia follow up: Airway intact: Yes Vital signs: Temperature 97 F Pulse Rate 87 Respiratory Rate 16 Blood Pressure 108/89 Pulse Oximetry 96 Oxygen Delivery Me thod Nasal Cannula Oxygen Flow Rate 2 Fraction of Inspir ed Oxygen Hydration adequate: Yes Nausea and vomiting: No Pain level: 1 Mental status: Baseline
[2023-12-21 11:12] VITALS: BP 165/101; PULSE 84; RESP 18; O2SAT 96
== END 2023-12-21 11:35 | disposition home or self-care (01) ==
PROVIDERS: PCP Family Medicine; Visit Provider Surgery
PROC: 0DJD8ZZ Inspection of Lower Intestinal Tract, Via Natural or Artificial Opening Endoscopic (ICD-10-PCS; CPT 45378; principal; 2023-12-21 09:55)
DX: Z12.11 Encounter for screening for malignant neoplasm of colon (principal); D12.3 Benign neoplasm of transverse colon; D12.8 Benign neoplasm of rectum; G47.33 Obstructive sleep apnea (adult) (pediatric); I48.91 Unspecified atrial fibrillation; I11.0 Hypertensive heart disease with heart failure; I50.9 Heart failure, unspecified; Z87.891 Personal history of nicotine dependence; J44.9 Chronic obstructive pulmonary disease, unspecified; Z86.718 Personal history of other venous thrombosis and embolism; Z79.84 Long term (current) use of oral hypoglycemic drugs
CPT/HCPCS: 36416; 45385; 82962; 88305; J2704; J7030

== ENCOUNTER → 2024-01-09 14:14 | Outpatient (BNVA) | payer OTHER, SELFPAY | PROVIDERS: PCP Family Medicine; Visit Provider Surgery | DX: Z09 Encounter for follow-up examination after completed treatment for conditions other than malignant neoplasm (principal) | CPT/HCPCS: 99213 ==

== ENCOUNTER → 2024-04-29 10:45 | Outpatient (BNVA) | payer OTHER, SELFPAY | PROVIDERS: PCP Family Medicine; Visit Provider Internal Medicine | DX: E11.42 Type 2 diabetes mellitus with diabetic polyneuropathy (principal); E78.2 Mixed hyperlipidemia; Z86.711 Personal history of pulmonary embolism; R90.82 White matter disease, unspecified; Z79.84 Long term (current) use of oral hypoglycemic drugs | CPT/HCPCS: 99214 ==

== ENCOUNTER → 2024-05-02 13:45 | Outpatient (BNVA) | payer OTHER, SELFPAY | PROVIDERS: PCP Family Medicine; Visit Provider Internal Medicine | DX: I48.91 Unspecified atrial fibrillation (principal); Z79.01 Long term (current) use of anticoagulants; Z79.82 Long term (current) use of aspirin; I50.9 Heart failure, unspecified; I11.0 Hypertensive heart disease with heart failure; F17.210 Nicotine dependence, cigarettes, uncomplicated | CPT/HCPCS: 99214 ==

== ENCOUNTER 2024-10-24 14:26 | Outpatient (CLI) | payer OTHER, SELFPAY ==
[2024-10-24 15:12] LABS: Estmated Average Glucose 134; Hemoglobin A1C 6.3 % (4.0-6.0)
[2024-10-24 15:14] LABS: Alanine Aminotransferase 19 U/L (0-41); Albumin Level 3.4 g/dL (3.5-5.2); Alkaline Phosphatase 151 U/L (40-130); Anion Gap 16.7 (5-19); Aspartate Amino Transferase 54 U/L (0-40); Blood Urea Nitrogen 17 mg/dL (6-20); Calcium 9.8 mg/dL (8.5-10.5); Carbon Dioxide 29 mmol/L (22-29); Chloride 98 mmol/L (98-107); Chol HDL Ratio 3.53 mg/dL (1.0-5.00); Cholesterol 219 mg/dL (0-200); Globulin 4.2 g/dL (1.3-4.6); Glucose 141 mg/dL (65-115); HDL Cholesterol 62 mg/dL (60-100); LDL Cholesterol Calculated 123 mg/dL (50-129); LDL HDL Ratio 1.98 RATIO (0.00-3.22); Osmolality Calculated 292 mOsm/kg (285-295); Potassium 4.7 mmol/L (3.5-5.1); Sodium 139 mmol/L (136-145); Total Protein 7.6 g/dL (6.6-8.7); Triglycerides 169 mg/dL (0-150)
[2024-10-24 15:17] LABS: Creatinine Urine, Random 61 mg/dL (39-259); Microalbum Creatinine Ratio Ur 16 mg/dL (0-20); Microalbumin Random Urine 1 ug/dL (0-20)
== END 2024-10-24 14:27 | disposition home or self-care (01) ==
LOC: LAB 14:27
PROVIDERS: PCP Family Medicine; Visit Provider Internal Medicine
DX: E11.9 Type 2 diabetes mellitus without complications (principal); E78.2 Mixed hyperlipidemia
CPT/HCPCS: 36415; 80053; 80061; 82044; 83036

== ENCOUNTER → 2024-10-28 10:37 | Outpatient (BNVA) | payer OTHER, SELFPAY | PROVIDERS: PCP Family Medicine; Visit Provider Internal Medicine | DX: E11.9 Type 2 diabetes mellitus without complications (principal); E78.2 Mixed hyperlipidemia; G62.9 Polyneuropathy, unspecified; Z86.711 Personal history of pulmonary embolism; R90.82 White matter disease, unspecified; R74.01 Elevation of levels of liver transaminase levels | CPT/HCPCS: 99214 ==

== ENCOUNTER → 2024-11-07 14:57 | Outpatient (BNVA) | payer OTHER, SELFPAY | PROVIDERS: PCP Family Medicine; Visit Provider Internal Medicine | DX: I48.91 Unspecified atrial fibrillation (principal); I50.9 Heart failure, unspecified; I10 Essential (primary) hypertension | CPT/HCPCS: 99213 ==

== ENCOUNTER 2025-05-08 14:21 | Emergency (ER) | payer OTHER, SELFPAY ==
[2025-05-08 14:23] VITALS: BP 123/77; PULSE 93; RESP 16; TEMP 36.8; O2SAT 99; BMI 27.5
--- NOTE | 2025-05-08 14:24 | XR_ITS ---
WS: [id number] XR elbow LT min 3V* [id number] REASON FOR EXAM: pain FINDINGS: There is displacement of the anterior fat pad indicating a joint effusion. A definite fracture of the humerus, radius, or ulna is not readily identified. There is a sclerotic line across the subarticular trabecular bone of the radial head. No radiopaque soft tissue foreign body. XR/XR elbow LT min 3V* [id number] IMPRESSION: There is an acute joint effusion which is usually associated in acute trauma wi th fracture. A definite fracture is not readily identified however there may be an occult fracture of the radial head.
--- OUTSIDE RECORDS SUMMARY | 2025-05-08 14:32 | XMS_ITS | Clinical Summary ---
Author Organization [facility] Address [address] [facility] [place] [address] Phone Care Team Providers Care Integration Project Manager Name Role Phone Reyna Hernandez RN Unavailable Unavailable Allison Tinsley MD Primary Care Provider [phone] Allergies No known active allergies Medications omeprazole (PRILOSEC) [address] capsule Take 20 mg by mouth one (1) time a day Active pravastatin (PRAVACHOL) 20 MG tablet Take one tablet (20 mg total) by mouth one (1) time a day 30 tablet 2 1 Active metoprolol succinate (TOPROL-XL) 100 MG 24 hr tablet Take one tablet (100 mg total) by mouth one (1) time a day 30 tablet 2 1 Active lisinopriL (PRINIVIL) 40 MG tablet Take one tablet (40 mg total) by mouth one (1) time a day 30 tablet 2 1 Active gabapentin (NEURONTIN) 300 MG capsule Take one capsule (300 mg total) by mouth 3 (three) times a day 90 capsule 2 1 Active furosemide (LASIX) 40 MG tablet Take one tablet (40 mg total) by mouth 2 (two) times a day 60 tablet 2 1 Active ELIQUIS 5 mg tablet SMARTSIG:By Mouth 1 Active atorvastatin (LIPITOR) 40 MG tablet 40 mg 1 Active cholecalciferol, vitamin D3, 50 mcg (2,000 unit) capsule 50 mcg 1 Active magnesium oxide (MAG-OX) 400 mg (241.3 mg magnesium) tablet 400 mg Active metFORMIN (GLUCOPHAGE) 1000 MG tablet Take 1,000 mg by mouth Active methocarbamoL (ROBAXIN) 750 MG tablet Take 750 mg by mouth 4 (four) times a day Active testosterone (ANDROGEL) 1 % (50 mg/5 gram) transdermal gel packet Place 50 mg onto the skin Active omega-3 fatty acids (FISH OIL) 340-1,000 mg capsule Take 1 capsule by mouth daily with breakfast Active Active Problems Problem Noted Date Diagnosed Date Acute on chronic heart failu re with preserved ejection fraction 01/11/2021 Morbid (severe) obesity due to excess calories 0 01/11/2021 Atrial fibrillation with RVR 01/10/2021 Elevated brain natriuretic peptide (BNP) level 0 01/10/2021 SOB (shortness of breath) 01/10/2021 Weight gain 01/10/2021 Elevated troponin 01/10/2021 Acute diastolic CHF (congestive heart failure) 0 01/09/2021 Lumbosacral spondylosis without myelopathy 11/19 Overview (11/19/2020): Added automatically from request for surgery [id number] Hypomagnesemia 09/11/2020 Transaminitis 09/11/2020 Femur fracture, left 09/07/2020 Illicit drug use 09/07/2020 PETER on CPAP 09/07/2020 Alcoholism 09/07/2020 Macrocytic anemia 09/07/2020 Hypokalemia 09/07/2020 Hyponatremia 09/07/2020 Acute blood loss anemia 09/07/2020 Hip fracture 09/06/2020 Hypertension 09/06/2020 Chronic atrial fibrillation 09/06/2020 Resolved Problems Problem Noted Date Diagnosed Date Resolved Date Obesity (BMI 30-39.9) 09/07/20202020 Type 2 diabetes mellitus 09/06/2020 Family History Medical History Relation Name Comments Cancer Father Heart disease Father Hypertension Father Stroke Father Thyroid disease Father Cancer Mother Cataracts Mother Hypertension Mother Relation Name Status Comments Father Mother Social History Tobacco Use Types Packs/Day Years Used Date Smoking Tobacco: Former Cigarettes 1 27 0 12/12/1993 - 12/12/2020 Smokeless Tobacco: Never Tobacco Cessation:Ready to Q uit: No; Counseling Given: Yes Alcohol Use Standard Drinks/Week Comments Yes 28 (1 standard drink = 0.6 oz pu re alcohol) AUDIT-C Answer Date Recorded Q1: How often do you have a drink containing alcohol? 4 or more times a week 07/28/2020 Average Number of Drinks Not on file 020 Frequency of Binge Drinking Not on file 03/2020 Sex and Gender Information Value Date Recorded Sex Assigned at Not on file Legal Sex Male 5:55 PM [employer]ORY [employer] Gender Identity Not on file Sexual Orientation Not on file Last Filed Vital Signs Vital Sign Reading Time Taken Comments Blood Pressure 137/85 10/06/2021 3:33 PM FACTORY LAB[employer]ER Pulse 93 10/06/2021 3:33 PM FACTORY LABORER Temperature 36.8 C (98.3 F) 01/11/2021 7:50 AM CDT Respiratory Rate 16 10/06/2021 3:3 3 PM FACTORY LABORER Oxygen Saturation 93% 01/11/2021 11: 00 AM CDT Inhaled Oxygen Concentration - - Weight 145.7 kg (321 lb 3.2 oz) 10/06/2021 3:33 PM FACTORY LABORER Height 198.1 cm (6' 6 ) 10/06/2021 3:33 PM FACTORY LABORER Body Mass Index 37.12 10/06/2021 3:33 PM FACTORY LABORER Plan of Treatment Health Maintenance Due Date Last Done Comments Colonoscopy Every 6 Months 1967 Colorectal Cancer Screening Annual FOBT/FIT Test 1967 Colorectal Cancer Screening Cologuard 1967 Colorectal Cancer Screening Flex Sigmoidoscopy 1967 Pneumococcal Vaccine High Risk 1967 Annual Depression Screening 1978 Annual Physical 1985 Hepatitis C Antibody Screen 1985 DTap/Tdap/Td Vaccines (1 - Tdap) 1986 Pneumococcal Vaccine Age 50+ (1 of 2 - PCV) 1986 Colorectal CA Screen 10 Year Colonoscopy 2012 Colorectal Cancer Screening 2012 Zoster Vaccine (Shingles) (1 of 2) 2017 Flu Vaccine (#1) 04/21/2025 Influenza Vaccine 04/21/2025 Diabetic Eye Exam WITHOUT Retinopathy Discontinued 08/22/2019 Diabetic Foot Exam Discontinued 10/27/2020, 0 09/23/2019, 09/23/2019 Glycosylated Hemoglobin Discontinued 01/10/2021, 09/08 Medical Devices Implanted Type Area Paper Feeder Device Identifier Shelf Expiration Date Model / Serial / Lot K-Wire Ster 3.2 X 450 - [id number] Implanted:Qty : 1 on 09/06/2020 by Chavo Morales Jr., MD at [facility] Orthopedic Miscellaneous Left: Hip STRY-ORTH 05/20/2025 [id number] S / / [id number] K-Wire Ster 3.2 X 450 - [id number] Implanted:Qty : 1 on 09/06/2020 by Chavo Morales Jr., MD at [facility] Orthopedic Miscellaneous Left: Hip STRY-ORTH 05/20/2025 [id number] S / / [id number] Screw Thrd Lock 47.5 X 5 Mm - [id number] Implanted:Qty : 1 on 09/06/2020 by Chavo Morales Jr., MD at [facility] Orthopedic Miscellaneous Left: Hip STRY-ORTH 10/19/2023 [id number] S / / [id number] Nail Gamma 3 Ti Long 1.5 R1 - [id number] Implanted:Qty : 1 on 09/06/2020 by Chavo Morales Jr., MD at [facility] Orthopedic Trauma Left: Hip STRY-ORTH 08/20/2024 [id number] S / / [id number] Screw Lag 10.5 X 110 [id number] - [id number] Implanted:Qty : 1 on 09/06/2020 by Chavo Morales Jr., MD at [facility] Orthopedic Trauma Left: Hip STRY-ORTH 02/18/2024 [id number] S / / [id number] Screw Locking 5x45 [id number] - [id number] Implanted:Qty : 1 on 09/06/2020 by Chavo Morales Jr., MD at [facility] Orthopedic Trauma Left: Hip STRY-ORTH 07/20/2024 [id number] S / / [id number] Procedures Procedure Name Priority Date/Time Associated Diagnosis Comments HEMOGLOBIN A1C Routine 01/10/2021 3:55 AM CDT from Last 3 Months or Most Recently Relevant to Health Maintenance Results * Hemoglobin A1c (01/10/2021 3:55 AM CDT) Hemoglobin A1c 5.3 4.5 - 6.2 % 01/10/2021 5:16 AM CDT [facility] Estimated average glucose 105 01/10/2021 5:16 AM CDT [facility] Blood Venipuncture / Unknown 01/10/2021 3:55 AM CDT 01/10/2021 4:51 AM CDT us Renny Coello DO LAB BLOOD ORDERABLES Final Resul t [facility] [address] [place] [address] from Last 3 Months or Most Recently Relevant to Health Maintenance Insurance [facility] [employer] [place] [address] [place] [address] Advance Directives For more information, please contact: [phone] (7AM - 5PM [facility], 7 days a week) * Full Code (Latest Code Status on File) Date Activated Date Inactivated Comments 01/09/2021 11:50 PM 01/11/2021 5:26 PM * Full Code Date Activated Date Inactivated Comments 09/11/2020 2:27 PM 09/17/2020 6:16 PM * Full Code Date Activated Date Inactivated Comments 09/08/2020 8:00 AM 09/11/2020 2:26 PM Care Teams Integration Project Manager Relationship Specialty Start Date End Date Allison Tinsley MD [address] [facility] [place] [address] PCP - General Family Medicine 10/06/21 Reyna Hernandez RN [address] [place] [address] Navigator Nurse Navigator 01/11/21
--- OUTSIDE RECORDS SUMMARY | 2025-05-08 14:32 | XMS_ITS | Clinical Summary ---
Author Organization [facility] Address [address] [place] [address] Phone Care Team Providers [employer] Director Name Role Phone Allison Tinsley Primary Care Provider [phone] Allergies No known active allergies Medications furosemide (Lasix) 40 mg tablet Take 20 mg by mouth twice a day. 01/12/20 Active gabapentin (Neurontin) 300 mg capsule Take 600 mg by mouth 3 times a day. 01/12/20 21 Active lisinopriL (Prinivil, Zestril) 40 mg tablet Take 40 mg by mouth 1 (one) time each day. 01/12/20 21 Active metoprolol succinate XL (Toprol-XL) 100 mg 24 hr tablet Take 100 mg by mouth 1 (one) time each day. 01/12/20 21 Active omeprazole (PriLOSEC) [address] capsule Take 40 mg by mouth 1 (one) time each day. Active pravastatin (Pravachol) 20 mg tablet Take 20 mg by mouth 1 (one) time each day. 01/12/20 21 Active metFORMIN (Glucophage) 1,000 mg tablet Take 1,000 mg by mouth 1 (one) time each day with breakfast. Active alendronate-vit navarro D3 (Fosamax Plus D) 70 mg- 2,800 unit tablet Take 2 tablets by mouth every 7 (seven) days. Take in the morning with a full glass of water, on an empty stomach, and do not take anything else by mouth or lie down for the next 30 min. Active magnesium oxide (Mag-Ox) 400 mg tablet 400 mg 1 (one) time each day. Active potassium chloride (Klor-Con) 20 mEq packet Take 20 mEq by mouth 2 (two) times a day. Active methocarbamoL (Robaxin) 750 mg tablet Take 750 mg by mouth 4 (four) times a day. Active omega-3 acid ethyl esters (Lovaza) 1 gram capsule Take 500 mg by mouth 2 (two) times a day. Active testosterone (Androgel) 50 mg/5 gram (1 %) gel Place 50 mg on the skin 1 (one) time each day. Active atorvastatin (Lipitor) 40 mg tablet 40 mg. 07/28/20 Active cholecalciferol (Vitamin D-3) 50 mcg (2,000 unit) capsule 50 mcg. 07/28/20 Active alprostadiL (Edex) 10 mcg injectionIndica tions:Erectile dysfunction, unspecified erectile dysfunction type 10 mcg by intracavernosal route if needed for erectile dysfunction. use no more than 3 times per week 4 mcg 11 09/06/19 Active apixaban (Eliquis) 5 mg tablet Take 5 mg by mouth 2 (two) times a day. 08/07/20 Active Active Problems Problem Noted Date Diagnosed Date Morbid (severe) obesity due to excess calories 0 01/11/2021 Acute on chronic heart failu re with preserved ejection fraction 01/11/2021 Weight gain 01/10/2021 SOB (shortness of breath) 01/10/2021 Elevated brain natriuretic peptide (BNP) level 0 01/10/2021 Elevated troponin 01/10/2021 Atrial fibrillation with RVR 01/10/2021 Acute diastolic CHF (congestive heart failure) 0 01/09/2021 Lumbosacral spondylosis without myelopathy 11/19 Overview (06/23/2021): Added automatically from request for surgery [id number] Transaminitis 09/11/2020 Hypomagnesemia 09/11/2020 PETER on CPAP 09/07/2020 Macrocytic anemia 09/07/2020 Illicit drug use 09/07/2020 Hyponatremia 09/07/2020 Hypokalemia 09/07/2020 Femur fracture, left 09/07/2020 Alcoholism 09/07/2020 Acute blood loss anemia 09/07/2020 Hypertension 09/06/2020 Hip fracture 09/06/2020 Chronic atrial fibrillation 09/06/2020 Encounters Date Type Department Care Team Description 04/28/2025 2:30 PM CDT Office Visit [facility] [address] [place] [id number] Sherwin Holley MD Hypogonadism male (Primary Dx); Other male erectile dysfunction from Last 3 Months Family History Medical History Relation Comments Cancer Father Heart attack Father Heart disease Father Hernia Father Stroke Father hemorids Father Cancer Mother Hypertension Mother Kidney disease Mother parathyroid Mother Relation Status Comments Father Alive Mother Alive Social History Tobacco Use Types Packs/Day Years Used Date Smoking Tobacco: Every Day Cigarettes 0.5 30 Smokeless Tobacco: Never Tobacco Cessation:Ready to Q uit: Not Asked; Counseling Given: Not Answered Alcohol Use Standard Drinks/Week Comments Yes 0 (1 standard drink = 0.6 oz pur e alcohol) a fifth a night or a few shots AUDIT-C Answer Date Recorded Q1: How often do you have a drink containing alcohol? 4 or more times a week 04/28/2025 Q2: How many drinks containi ng alcohol do you have on a typical day when you are drinking? 1 or 2 Q3: How often do you have si x or more drinks on one occasion? Never 04/28/2025 PHQ-2 Answer Date Recorded Patient Health Questionnaire-2 Score 0 04/28/2025 [facility] - Mental Health Answer Date Recorde d Little interest or pleasure in doing things Not at all 04/28/2025 Feeling down, depressed, or hopeless Not at all 04/28/2025 Feeling of Stress Not on file 04/28/2025 Sex and Gender Information Value Date Recorded Sex Assigned at Not on file Legal Sex Male 3:54 PM CDT Gender Identity Not on file Sexual Orientation Not on file Last Filed Vital Signs Vital Sign Reading Time Taken Comments Blood Pressure 117/81 04/28/2025 3:03 PM CDT Pulse 111 04/28/2025 3:03 PM CDT Temperature 36.2 C (97.1 F) 04/28/2025 3:03 PM CDT Respiratory Rate 18 04/28/2025 3:03 PM CDT Oxygen Saturation 100% 04/28/2025 3:03 PM CDT Inhaled Oxygen Concentration - - Weight 118 kg (261 lb) 04/28/2025 3:03 PM CDT Height 198.1 cm (6' 6 ) 04/28/2025 3:03 PM CDT Body Mass Index 30.16 04/28/2025 3:03 PM CDT Plan of Treatment Health Maintenance Due Date Last Done Comments CT Colonography 1967 Colonoscopy 1967 Colorectal Cancer Screening 1967 Diabetes: Hemoglobin A1C 1967 Echocardiogram 1967 FIT-DNA 1967 FIT 1967 FOBT 1967 Sigmoidoscopy 1967 MMR Vaccines (1 of 1 - Stand earl series) 1968 DTaP,Tdap,and Td Vaccines (1 - Tdap) 1974 Diabetes: Foot Exam 1977 Varicella Vaccines (1 of 2 - 13+ 2-dose series) 1980 Social Drivers of Health (SDoH) 1985 Hepatitis A Vaccines (1 of 2 - Risk 2-dose series) 1986 Hepatitis B Vaccines (1 of 3 - 19+ 3-dose series) 1986 Pneumococcal Vaccine: 50+ Ye ars (1 of 2 - PCV) 1986 Pneumococcal Vaccine (1 of 2 - PCV) 1986 Zoster Vaccines (1 of 2) 2017 Diabetes: Retinopathy Screening 08/22/2021 0 Creatinine Level 06/23/2022 06/23/2021 Potassium Level 06/23/2022 06/23/2021 COVID-19 Vaccine ( - 2023-2 5 season) 2025 Influenza Vaccine (#1) 2025 Depression Screening 04/29/2026 04/28/2025 RSV Vaccines (1 - 1-dose 75+ series) 2042 HIB Vaccines Aged Out No longer eligi ble based on patient's age to complete this topic HPV Vaccines Aged Out No longer eligi ble based on patient's age to complete this topic IPV Vaccines Aged Out No longer eligi ble based on patient's age to complete this topic Meningococcal B Vaccine Aged Out No l onger eligible based on patient's age to complete this topic Meningococcal Vaccine Aged Out No isabelle juani eligible based on patient's age to complete this topic Rotavirus Vaccines Aged Out No longer eligible based on patient's age to complete this topic Procedures Procedure Name Priority Date/Time Associated Diagnosis Comments COMPREHENSIVE METABOLIC PANEL Routine 06/23/2021 12:18 PM CDT Low testosterone from Last 3 Months or Most Recently Relevant to Health Maintenance Results * (ABNORMAL) Comprehensive Metabolic Panel (06/23/2021 12:18 PM CDT) Glucose 109(H) 70 - 100 mg/dL LAB CHEMISTRY METHOD 06/23/2021 2:28 PM CDT [facility] BUN 9 9 - 20 mg/dL LAB CHEMISTRY METHOD 06/23/2021 2:28 PM CDT [facility] Creatinine 1.00 0.66 - 1.25 mg/dl LAB CHEMISTRY METHOD 06/23/2021 2:28 PM CDT [facility] BUN/Creatinine Ratio 9(L) 12 - 17 LAB CHEMISTRY METHOD 06/23/2021 2:28 PM CDT [facility] Sodium 132(L) 135 - 145 mmol/L LAB CHEMISTRY METHOD 06/23/2021 2:28 PM CDT [facility] Potassium 4.1 3.6 - 5.0 mmol/L LAB CHEMISTRY METHOD 06/23/2021 2:28 PM CDT [facility] Chloride 100(L) 101 - 111 mmol/L LAB CHEMISTRY METHOD 06/23/2021 2:28 PM CDT [facility] Total Carbon Dioxide 26 22 - 30 mmol/L LAB CHEMISTRY METHOD 06/23/2021 2:28 PM CDT [facility] Anion Gap 10 9 - 17 mmol/L LAB CHEMISTRY METHOD 06/23/2021 2:28 PM CDT [facility] Calcium 9.5 8.2 - 10.2 mg/dL LAB CHEMISTRY METHOD 06/23/2021 2:28 PM CDT [facility] Total Protein, Serum 7.6 5.6 - 8.5 g/dL LAB CHEMISTRY METHOD 06/23/2021 2:28 PM CDT [facility] Albumin 2.7(L) 3.5 - 5.2 g/dL LAB CHEMISTRY METHOD 06/23/2021 2:28 PM CDT [facility] GLOBULIN 4.9(H) 2.1 - 3.8 g/dL LAB CHEMISTRY METHOD 06/23/2021 2:28 PM CDT [facility] A/G Ratio 0.6(L) 1.4 - 1.7 LAB CHEMISTRY METHOD 06/23/2021 2:28 PM CDT [facility] Bilirubin, Total 1.4(H) 0.1 - 1.3 mg/dL LAB CHEMISTRY METHOD 06/23/2021 2:28 PM CDT [facility] Alkaline Phosphatase 111 45 - 117 U/L LAB CHEMISTRY METHOD 06/23/2021 2:28 PM CDT [facility] ALT (SGPT) 24 11 - 58 U/L LAB CHEMISTRY METHOD 06/23/2021 2:28 PM CDT [facility] AST (SGOT) 49 9 - 55 U/L LAB CHEMISTRY METHOD 06/23/2021 2:28 PM CDT [facility] eGFR >60 >=60 LAB CHEMISTRY METHOD 06/23/2021 2:28 PM CDT [facility] Blood Venous blood specimen / Unknown Venipuncture / Unknown 06/23/2021 12:18 PM CDT 06/23/2021 12:22 PM CDT us Sherwin Holley MD LAB BLOOD ORDERABLES Fin al Result Performing Organization Address City/State/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
--- OUTSIDE RECORDS SUMMARY | 2025-05-08 14:32 | XMS_ITS | Clinical Summary ---
Author Organization [facility] Address [address] [place] [address] Phone Care Team Providers Care Brim Stiffener Name Role Phone Unavailable Primary Care Provider Unavailabl e Allergies No known active allergies Medications lisinopriL (PRINIVIL) 40 mg tablet Take 40 mg by mouth daily in the morning. Active omeprazole (PriLOSEC) 40 mg Capsule, Delayed Release(E.C.) Take 40 mg by mouth daily. Active CALCIUM CARBONATE ORAL Take by mouth. Active FUROSEMIDE ORAL Take by mouth. Active alendronate-vit navarro D3 (FOSAMAX PLUS D) 70-2,800 mg-unit tablet Take 2 Tablets by mouth. Active Alprostadil 10 mcg Kit by NOT APPLICABLE route. 3 Active amLODIPine (NORVASC) 10 mg tablet Take 5 mg by mouth daily. Active aspirin (TREVER CHEWABLE) 81 mg Tablet, Chewable Take 324 mg by mouth. 4 Active DULoxetine (CYMBALTA) 30 mg Capsule, Delayed Release(E.C.) Take 30 mg by mouth. 5 Active folic acid (FOLVITE) 1 mg tablet Take 1 mg by mouth. 2 Active docusate sodium (COLACE) 100 mg capsule Take 100 mg by mouth 2 times daily as needed. 4 Active methocarbamoL (ROBAXIN) 750 mg tablet Take 750 mg by mouth. Active testosterone 10 mg/0.5 gram /actuation Gel in Metered-dose Pump Apply to affected area. 2 Active gabapentin (NEURONTIN) 600 mg tablet Take 600 mg by mouth. 2 Active magnesium oxide 400 mg magnesium Tablet 400 mg daily. 4 Active metFORMIN (GLUCOPHAGE XR) 500 mg Extended Release 24 hour tablet Take 500 mg by mouth. 5 Active potassium CHLORIDE (KLOR-CON) 20 mEq Packet Take 20 mEq by mouth 2 times daily. Active HYDROcodone-vasyl taminophen (NORCO) 5-325 mg tabletIndicatio ns:Postoperativ e pain Take 1 Tablet by mouth every 4 hours as needed for Pain, Moderate. Max Daily Amount: 6 Tablets 20 Tablet 5 Active metoprolol succinate (TOPROL XL) 200 mg Extended Release 24 hour tablet Take 200 mg by mouth. 5 Active sildenafiL (VIAGRA) 100 mg tablet Take 100 mg by mouth. 2 Active Active Problems No known active problems Encounters Date Type Department Care Team Description 02/11/2025 External Device Data [facility] ABSTRACTION Provider, Abstract from Last 3 Months Immunizations Immunization Administration Dates Next Due Hepatitis B Vaccine 07/31/2020 Social History Tobacco Use Types Packs/Day Years Used Date Smoking Tobacco: Some Days Cigarettes Tobacco Cessation:Ready to Q uit: Not Asked; Counseling Given: Not Answered Alcohol Use Standard Drinks/Week Comments Yes 0 (1 standard drink = 0.6 oz pur e alcohol) Feeling Safe Answer Date Recorded Are you in a relationship wi th someone who hurts you emotionally and/or physically? No 01/01/2025 Food Insecurity Answer Date Recorded Patient needs follow up regardin 12/12/2024 Transportation Needs Answer Date Record ed Patient needs follow up regardin 12/12/2024 Housing Stability Answer Date Recorded Social/Environmental Concerns No concerns Utility Needs Answer Date Recorded Patient needs follow up regardin 12/12/2024 Sex and Gender Information Value Date Recorded Sex Assigned at Not on file Legal Sex Male 12:46 AM [employer]OD [employer]ING [employer]PER[employer] Gender Identity Not on file Sexual Orientation Not on file Last Filed Vital Signs Vital Sign Reading Time Taken Comments Blood Pressure 129/82 01/03/2025 3:00 PM CDT Pulse 93 01/03/2025 3:00 PM CDT Temperature 36.2 C (97.1 F) 01/03/2025 3:00 PM CDT Respiratory Rate 16 01/03/2025 3:00 PM CDT Oxygen Saturation 94% 01/03/2025 3:00 PM CDT Inhaled Oxygen Concentration - - Weight 117.5 kg (259 lb) 02/04/2025 10:37 AM CDT Height 198.1 cm (6' 6 ) 02/04/2025 10:37 AM CDT Body Mass Index 29.93 02/04/2025 10:37 AM CDT Plan of Treatment Health Maintenance Due Date Last Done Comments DIABETES ANNUAL FOOT EXAM 1985 DIABETES MICROALBUMIN ANNUAL SCREEN 1985 LDL CHOLESTEROL ANNUAL 1985 DTAP/TDAP/TD VACCINES (1 - Tdap) 1986 HEPATITIS B VACCINES (1 of 3 - 19+ 3-dose series) 1986 07/31/2020 COLORECTAL SCREENING 2012 Colorectal Cancer Screening 2012 FIT-DNA Q 3 years 2012 FIT/FOBT Q 1 year 2012 Flex Sig/CT Colonography Q 5 years 2012 ZOSTER VACCINE (1 of 2) 2017 DIABETES HBA1C Q 6 MONTHS 03/02/20252024, 01/10/2021, 08/17/2018 INFLUENZA VACCINE (#1) 2025 DIABETES ANNUAL RETINAL EXAM 10/24/2025 10/24/2024, 08/22/2019 Medical Devices Implanted Type Area Body Stylist Device Identifier Shelf Expiration Date Model / Serial / Lot Plate Matrixmandible 2x2h 1.0mm Mini Pl-Tension Band 503.750 - [id number] Implanted:Qty: 1 on 07/10/2024 by Femi Membreno MD at [facility] Plate N/A: Mandible [employer] DEPUY SYNTHES .75 0 / / Plate Matrixmandible Dcp .723 - [id number] Implanted:Qty: 1 on 07/10/2024 by Femi Membreno MD at [facility] Plate N/A: Mandible [employer]- DEPUY SYNTHES .72 3 / / Screw Matrixmandible St Loc 2.4mm .638.01 - [id number] Implanted:Qty: 1 on 07/10/2024 by Femi Membreno MD at [facility] Screw N/A: Mandible [employer]- DEPUY SYNTHES .63 8.01 / / Screw Matrixmandible St Loc 2.4mm 04.503.638.01 - [id number] Implanted:Qty: 1 on 07/10/2024 by Femi Membreno MD at [facility] Screw N/A: Mandible [employer]- DEPUY SYNTHES 04.503.63 8.01 / / Screw Matrixmandible St Loc 2.4mm 04.503.638.01 - [id number] Implanted:Qty: 1 on 07/10/2024 by Femi Membreno MD at [facility] Screw N/A: Mandible [employer]- DEPUY SYNTHES 04.503.63 8.01 / / Screw Matrixmandible St Loc 2.4mm 04.503.640.01 - [id number] Implanted:Qty: 1 on 07/10/2024 by Femi Membreno MD at [facility] Screw N/A: Mandible [employer]- DEPUY SYNTHES 04.503.64 0.01 / / Screw Matrixmandible St Loc 2.4mm 04.503.640.01 - [id number] Implanted:Qty: 1 on 07/10/2024 by Femi Membreno MD at [facility] Screw N/A: Mandible [employer]- DEPUY SYNTHES 04.503.64 0.01 / / Screw Matrixmandible St Loc 2.4mm 04.503.640.01 - [id number] Implanted:Qty: 1 on 07/10/2024 by Femi Membreno MD at [facility] Screw N/A: Mandible [employer]- DEPUY SYNTHES 04.503.64 0.01 / / Screw Matrixmandible St 2.4mm 04.503.438.01 - [id number] Implanted:Qty: 1 on 07/10/2024 by Femi Membreno MD at [facility] Screw N/A: Mandible [employer]- DEPUY SYNTHES 04.503.43 8.01 / / Screw Matrixmandible St 2.4mm 04.503.440.01 - [id number] Implanted:Qty: 1 on 07/10/2024 by Femi Membreno MD at [facility] Screw N/A: Mandible [employer]- DEPUY SYNTHES .503.44 0.01 / / Explanted Type Area Body Stylist Device Identifier Shelf Expiration Date Model / Serial / Lot Plate Matrixmandible [place] .711 - [id number] Implanted:Qty: 1 on 07/10/2024 by Femi Membreno MD at [facility] Explanted:Qty: 1 on 01/03/2025 by Femi Membreno MD at [facility] Plate N/A: Mandible [employer]- DEPUY SYNTHES .71 1 / / Screw Matrixmandible Slftp 2.4x12mm 442.01 - [id number] Explanted:Qty: 1 on 07/10/2024 by Femi Membreno MD at [facility] Screw N/A: Mandible [employer]- DEPUY SYNTHES .44 2.01 / / Screw Matrixmandible St Loc 2.4mm 638.01 - [id number] Explanted:Qty: 1 on 07/10/2024 by Femi Membreno MD at [facility] Screw N/A: Mandible [employer]- DEPUY SYNTHES .503.63 8.01 / / Screw Matrixmandible St Loc 2.4mm ..638.01 - [id number] Explanted:Qty: 1 on 07/10/2024 by Femi Membreno MD at [facility] Screw N/A: Mandible [employer]- DEPUY SYNTHES .503.63 8.01 / / Screw Matrixmandible St 2.0mm 04..406.01 - [id number] Implanted:Qty: 1 on 07/10/2024 by Femi Membreno MD at [facility] Explanted:Qty: 1 on 01/03/2025 at [facility] Screw N/A: Mandible [employer]- DEPUY SYNTHES 04.503.40 6.01 / / Screw Matrixmandible St Loc 2.0mm 04..606.01 - [id number] Implanted:Qty: 1 on 07/10/2024 by Femi Membreno MD at [facility] Explanted:Qty: 1 on 01/03/2025 at [facility] Screw N/A: Mandible [employer]- DEPUY SYNTHES 6.01 / / Screw Matrixmandible St Loc 2.0mm 60. - [id number] Implanted:Qty: 1 on 07/10/2024 by Femi Membreno MD at [facility] Explanted:Qty: 1 on 01/03/2025 at [facility] Screw N/A: Mandible J[employer]- DEPUY SYNTHES 6.01 / / Screw Matrixmandible St Loc 2.0mm 606 - [id number] Implanted:Qty: 1 on 07/10/2024 by Femi Membreno MD at [facility] Explanted:Qty: 1 on 01/03/2025 at [facility] Screw N/A: Mandible [employer]- DEPUY SYNTHES 6.01 / / Insurance [place] [id number] [place] [employer] [employer] Advance Directives For more information, please contact: [phone] * Full Code (Latest Code Status on File) Date Activated Date Inactivated Comments 01/03/2025 2:33 PM 01/03/2025 5:42 PM * Full Code Date Activated Date Inactivated Comments 01/03/2025 8:47 AM 01/03/2025 2:33 PM * Full Code Date Activated Date Inactivated Comments 07/10/2024 2:25 PM 07/10/2024 9:54 PM
--- OUTSIDE RECORDS SUMMARY | 2025-05-08 14:32 | XMS_ITS | Encounter Summary ---
Author Organization [facility] Address [address] [address] Phone Care Team Providers Care Log Deckman Name Role Phone Allison Tinsley Primary Care Provider Reason for Visit * Reason Comments Med Refill Encounter Details Date Type Department Care Team (Late st Contact Info) Description 07/29/2022 Refill [facility] [address] [phone] Sherwin Holley MD [address] [phone] Erectile dysfunction, unspecified erectile dysfunction type Social History Tobacco Use Types Packs/Day Years Used Date Smoking Tobacco: Every Day Cigarettes 0.5 30 Smokeless Tobacco: Never Alcohol Use Standard Drinks/Week Comments Yes 0 (1 standard drink = 0.6 oz pur e alcohol) a fifth a night or a few shots PHQ-2 Answer Date Recorded Patient Health Questionnaire-2 Score 0 07/30/2021 Sex and Gender Information Value Date Recorded Sex Assigned at Not on file Legal Sex Male 3:54 PM CDT Gender Identity Not on file Sexual Orientation Not on file documented as of this encounter Plan of Treatment Not on file documented as of this encounter Visit Diagnoses Diagnosis Erectile dysfunction, unspecified erectile dysfunction type documented in this encounter Care Teams Log Deckman Relationship Specialty Start Date End Date Allison Tinsley [address] [place] [address] PCP - General 06/10/21 documented as of this encounter
[2025-05-08 14:41] VITALS: BP 124/93; PULSE 94; O2SAT 96
[2025-05-08 14:49] LABS: Hematocrit 43.1 % (37-53); Hemoglobin 14.70 g/dL (11.27-16.99); Mean Corpuscular HGB Conc 34.1 g/dL (30-55); Mean Corpuscular Hemoglobin 36.4 pg (27-33); Mean Corpuscular Volume 106.7 fl (82-101); Nucleated Red Blood Cells % 0 %; Platelet Count 234 10^3/cmm (157-399); Red Blood Count 4.04 10^6/uL (3.85-5.65); White Blood Count 8.42 10^3/uL (3.29-11.43)
--- NOTE | 2025-05-08 14:49 | XR_ITS ---
WS: [id number] XR chest 1V portable [id number] REASON FOR EXAM: Chest pain FINDINGS: The heart and the mediastinum are within normal limits. Calcified granulomatous disease bilaterally. Coarse interstitial lung opacities in the lower lung pollack predominating on the right. Review of a CT scan of the chest from 02/14/2023 would indicate these findings are chronic. No other findings to indicate acute pulmonary parenchymal or pleural abnormality. The bony thorax is intact without significant focal abnormality. XR/XR chest 1V portable [id number] IMPRESSION: No acute chest abnormality.
--- NOTE | 2025-05-08 14:49 | CT_ITS ---
WS: [id number] CT HEAD NONCONTRAST HISTORY: Fall TECHNIQUE: Contiguous axial imaging performed through the brain. Bone and soft tissue windows. Sagittal and coronal reformats reviewed. All CT scans at [facility] use at least one of these dose optimization techniques: automated exposure control; mA and/or kV adjustment per patient size (includes targeted exams where dose is matched to clinical indication); or iterative reconstruction. DLP: 1239.28 mGy.cm COMPARISON: None available. No acute intracranial hemorrhage, midline shift or mass effect. Moderate symmetric atrophy and small vessel disease. Ventricles: Normal size with no hydrocephalus. No inferior displacement the cerebellar tonsils. Mild plaque in the intracranial carotid arteries. Paranasal sinuses: As visualized are clear. Mastoid air cells: Well pneumatized. Calvarium and scalp: Skull is intact with no soft tissue edema or swelling. CT/CT head wo con* [id number] IMPRESSION: 1. No acute intracranial hemorrhage or edema. 2. Moderate atrophy and small vessel disease. No prior infarcts.
--- NOTE | 2025-05-08 14:49 | ECG_ITS ---
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 Measurements Intervals [place] Rate: 112 P: 0 IN: 0 QRS: 19 QRSD: 104 T: 53 QT: 361 QTc: 493 Interpretive Statements ATRIAL FIBRILLATION WITH RAPID VENTRICULAR RESPONSE INCOMPLETE RIGHT BUNDLE BRANCH BLOCK [90+ ms QRS DURATION, TERMINAL R IN V1/V2, 40+ ms S IN I/aVL/V4/V5/V6] ABNORMAL RHYTHM ECG No previous ECG available for comparison Electronically Signed On 05-10-2025 13:10:45 CDT by Domingo Morelos M.D. [email or web address]
[2025-05-08 15:07] LABS: Alanine Aminotransferase 20 U/L (0-41); Albumin Level 2.9 g/dL (3.5-5.2); Alkaline Phosphatase 249 U/L (40-130); Anion Gap 18.1 (5-19); Aspartate Amino Transferase 68 U/L (0-40); Blood Urea Nitrogen 7 mg/dL (6-20); Calcium 8.8 mg/dL (8.5-10.5); Carbon Dioxide 23 mmol/L (22-29); Chloride 97 mmol/L (98-107); Creatinine Clr Calc Pharmacy 116.0668; Globulin 3.6 g/dL (1.3-4.6); Glucose 91 mg/dL (65-115); Osmolality Calculated 276 mOsm/kg (285-295); Potassium 4.1 mmol/L (3.5-5.1); Sodium 134 mmol/L (136-145); Total Protein 6.5 g/dL (6.6-8.7)
--- NOTE | 2025-05-08 15:08 | W.ED.FALL ---
HPI - Fall General: Chief Complaint: Fall Stated Complaint: head/left elbow pain Time Seen by Provider: 05/08/25 14:22 History of Present Illness: 59-year-old male presents to the emergency room with complaints of generalized pain patient is fallen several times he landed on his chest he has some pain across sternum extending to the right side he also has significant pain on his left arm. He denies any fever sweats or chills when asked what precipitated his falls he said he just falls a lot. Patient has a history of atrial fibrillation he is on apixaban. 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 He states he had infections when asked him if he had diabetes he downplays the possibility although he is on metformin. P patient reports no pain radiating into the arms or neck the pain in left arm is localized to the elbow. He states he has some numbness and tingling extending into the hand. Associated symptoms-after fall: Reports chest pain; Denies abdominal pain or neck pain Related Data Home Medications ?Medication ?Instructions ?Recorded ?Confirmed cholecalciferol (vitamin D3) 50 50 mcg PO QAM 06/22/21 04/28/25 mcg (2,000 unit) capsule lisinopril 40 mg tablet 40 mg PO QAM 06/22/21 04/28/25 metoprolol succinate 200 mg 100 - 200 mg PO DAILY 06/22/21 04/28/25 tablet,extended release 24 hr furosemide 40 mg tablet 80 mg PO BID 07/27/23 04/28/25 alprostadil 10 mcg intracavernosal See Rx Instructions .Route .COMPLEX 08/03/23 04/28/25 syringe aspirin 325 mg tablet 325 mg PO QAM 08/03/23 04/28/25 gabapentin 600 mg tablet 1,200 mg PO BID 08/03/23 04/28/25 metformin 500 mg tablet,extended 500 mg PO QAM 08/03/23 04/28/25 release 24 hr omega-3 fatty acids 1,000 mg 1,000 mg PO BID 08/03/23 04/28/25 capsule omeprazole 40 mg capsule,delayed 40 mg PO QAM 08/03/23 04/28/25 release potassium chloride 20 mEq 20 meq PO QAM 08/03/23 04/28/25 tablet,extended release sildenafil 100 mg tablet 100 mg PO Q7D PRN Erectile 08/03/23 04/28/25 Dysfunction testosterone 1.62 % (20.25 mg/1.25 1 packet transdermal .EVERY 2 DAYS 08/03/23 04/28/25 gram) transdermal gel packet calcium 500 mg (as 1 tab PO ONCE 09/26/23 04/28/25 carbonate)-vitamin D3 5 mcg (200 unit) tablet (Oyster Shell Calcium-Vitamin D3) duloxetine 30 mg capsule,delayed mg PO 09/26/23 04/28/25 release Previous Rx's ?Medication ?Instructions ?Recorded apixaban 5 mg tablet (Eliquis) 5 mg PO BID #60 tabs 02/14/22 albuterol sulfate 90 mcg/actuation 2 puff inhalation Q6H PRN 05/23/23 aerosol inhaler shortness of breath or wheezing #8.5 grams docusate sodium 100 mg tablet 100 mg PO DAILY #4 tabs 09/26/23 magnesium citrate 300 ml PO DAILY constipation #296 09/26/23 mL cephalexin 500 mg capsule 500 mg PO TID 7 days #21 caps 05/08/25 tramadol 50 mg tablet 50 mg PO Q6H PRN pain #14 tabs 05/08/25 Allergies Allergy/AdvReac Type Severity Reaction Status Date / Time No Known Allergies Allergy Verified 11/07/24 15:29 Review of Systems Const: Denies: fever(s) or chills Card: Reports: chest pain Resp: Denies: dyspnea GI: Denies: abdominal pain : Denies: dysuria, urinary frequency or urinary urgency Musc: Reports: extremity pain; Denies: neck pain or back pain Skin/Breast: Denies: rash PFSH ED PFSH: Medical History PETER (obstructive sleep apnea) Status post fracture of femur Carpal tunnel syndrome Saddle embolus of pulmonary artery HTN (hypertension), benign Atrial fibrillation CHF (congestive heart failure) Surgical History S/P hip replacement Family History Mother Cancer Hypertension Cataracts, bilateral Father Stroke CAD (coronary artery disease) Hypertension Social History Smoking and tobacco/nicotine status: current every day tobacco/nicotine user Quit status (tobacco/nicotine): has quit using Year quit tobacco: 07/2023 Former quit date comment: 1 ppd X 32 years Alcohol intake: current Substance/Drug Use: current Other substance/drug use details: working no gettting medical card Physical Exam Const: COMMON NORMALS: no acute distress GENERAL APPEARANCE: cooperative and comfortable ORIENTATION/CONSCIOUSNESS: Yes awake, Yes oriented to person, Yes oriented to place and Yes oriented to time HENMT: COMMON NORMALS: normocephalic, atraumatic and hearing grossly normal bilaterally HEAD & SCALP: normocephalic and atraumatic Resp: COMMON NORMALS: normal respiratory effort, No retractions, No use of accessory muscles and clear to auscultation bilaterally AUSCULTATION: clear to auscultation bilaterally Cardio: COMMON NORMALS: regular rate, regular rhythm and No murmurs present (Cardio) RATE: regular rate RHYTHM: regular rhythm GI: COMMON NORMALS: Soft to palpation and No hepatosplenomegaly present AUSCULTATION: Yes normoactive bowel sounds PALPATION: Yes Soft to palpation, No Tenderness to palpation present (GI), No Guarding due to palpation present (GI) and Yes No hepatosplenomegaly present Extremity: OTHER: Patient has some moderate swelling along the elbow posteriorly and extends into the forearm. No redness no erythema no induration no lymphatic streaking. It is tender to the touch. Patient is still able to flex and make a fist the strength is 5 of 5 in the left arm. Slight decrease sensation to sharp touch. Neuro: SENSORIUM/ORIENTATION: Yes oriented to person, Yes oriented to place and Yes oriented to time Skin: COMMON NORMALS: no rashes or lesions noted GENERAL SKIN EXAM: no rashes or lesions noted Course Vital Signs: Vital signs: Vital Signs Temperature 98.3 F 05/08/25 14:23 Pulse Rate 90 05/08/25 17:24 Respiratory Rate 16 05/08/25 14:23 Blood Pressure 124/94 05/08/25 17:24 Pulse Oximetry 98 05/08/25 17:24 Oxygen Delivery Me thod Room Air 05/08/25 16:32 MDM - Fall Medical Decision Making Patient multiple complaints including pain in the left elbow with some swelling. He has chest pain as well cardiac enzymes and EKG did not show anything acute. Initial x-ray showed a joint effusion recommended a CT CT did not show any acute fractures there is some overlying question of cellulitis. His white count was normal started on Keflex also gave tramadol for pain. His liver functions were significantly elevated patient did admit to very heavy history of drinking for years he just recently cut back to just beer from nearly of fifth of hard liquor per day. Discussed when his liver enzymes are elevated and ultrasound shows cirrhosis no evidence of gallbladder disease or infection at this time. Follow-up with his primary care. Medical Records I reviewed the patient's medical records. Lab Data I reviewed the patient's lab results. 05/08/25 14:33 05/08/25 14:33 Radiology Impressions Elbow X-Ray 05/08/25 14:24 IMPRESSION: There is an acute joint effusion which is usually associated in acute trauma with fracture. A definite fracture is not readily identified however there may be an occult fracture of the radial head. Chest X-Ray 05/08/25 14:49 IMPRESSION: No acute chest abnormality. Head CT 05/08/25 14:49 IMPRESSION: 1. No acute intracranial hemorrhage or edema. 2. Moderate atrophy and small vessel disease. No prior infarcts. Liver Ultrasound 05/08/25 15:46 IMPRESSION: 1. Cirrhotic liver morphology. 2. No other acute disease identified in the right upper quadrant. Elbow CT 05/08/25 16:43 IMPRESSION: 1. No acute fractures. 2. No CT evidence for significant elbow effusion. 3. Olecranon bursitis. 4. Cellulitis surrounds the posterior aspect of the elbow. Laboratory Results WBC 8.42 10^3/uL (3.29-11.43) 05/08/25 14:33 RBC 4.04 10^6/uL (3.85-5.65) 05/08/25 14:33 Hgb 14.70 g/dL (11.27-16.99) 05/08/25 14:33 Hct 43.1 % (37-53) 05/08/25 14:33 MCV 106.7 fl (82-101) H 05/08/25 14:33 MCH 36.4 pg (27-33) H 05/08/25 14:33 MCHC 34.1 g/dL (30-55) 05/08/25 14:33 RDW 13.7 % (12.1-15.1) 05/08/25 14:33 Plt Count 234 10^3/cmm (157-399) 05/08/25 14:33 MPV 10.4 fL (7.4-10.4) 05/08/25 14:33 Neut % (Auto) 60.8 % 05/08/25 14:33 Lymph % (Auto) 23.9 % 05/08/25 14:33 [place] % (Auto) 13.4 % 05/08/25 14:33 Eos % (Auto) 1.2 % 05/08/25 14:33 Baso % (Auto) 0.2 % 05/08/25 14:33 Neut # (Auto) 5.12 10^3/uL (1.8-7.7) 05/08/25 14:33 Lymph # (Auto) 2.0 10^3/uL (0.8-4.8) 05/08/25 14:33 [place] # (Auto) 1.1 10^3/uL (0.2-0.9) H 05/08/25 14:33 Eos # (Auto) 0.1 10^3/uL (0.0-0.8) 05/08/25 14:33 Baso # (Auto) 0.0 10^3/uL (0.0-0.1) 05/08/25 14:33 Nucleated RBC % (auto) 0 % 05/08/25 14:33 Nucleated RBCs # 0.0 /100WBC 05/08/25 14:33 Sodium 134 mmol/L (136-145) L 05/08/25 14:33 Potassium 4.1 mmol/L (3.5-5.1) 05/08/25 14:33 Chloride 97 mmol/L (98-107) L 05/08/25 14:33 Carbon Dioxide 23 mmol/L (22-29) 05/08/25 14:33 Anion Gap 18.1 (5-19) 05/08/25 14:33 BUN 7 mg/dL (6-20) 05/08/25 14:33 Creatinine 0.9 mg/dL (0.7-1.2) 05/08/25 14:33 GFR Calculation 87.0 mL/min (90-130) L 05/08/25 14:33 Glucose 91 mg/dL (65-115) 05/08/25 14:33 Calculated Osmolality 276 mOsm/kg (285-295) L 05/08/25 14:33 Calcium 8.8 mg/dL (8.5-10.5) 05/08/25 14:33 Total Bilirubin 1.6 mg/dL (0.15-1.2) H 05/08/25 14:33 AST 68 U/L (0-40) H 05/08/25 14:33 ALT 20 U/L (0-41) 05/08/25 14:33 Alkaline Phosphatase 249 U/L (40-130) H 05/08/25 14:33 Troponin T Baseline 14 ng/L (0-15) 05/08/25 14:33 Troponin T 120 Minute 13.52 ng/L (0-15) 05/08/25 16:58 Delta Troponin T -0.48 ABS# (0-10) L 05/08/25 16:58 Total Protein 6.5 g/dL (6.6-8.7) L 05/08/25 14:33 Albumin 2.9 g/dL (3.5-5.2) L 05/08/25 14:33 Globulin 3.6 g/dL (1.3-4.6) 05/08/25 14:33 All radiology interpretation(s) finalized by discharge EKG Data EKG 1: Interpretation: EKG 05/08/2025 1504 atrial fibrillation rate of 112 CT QTc 493. No previous EKGs for comparison no acute ST changes noted EKG 2: Interpretation: EKG 05/08/2025 1655 atrial fibrillation with a rate of 87 QTc [address] changes noted. Compared to EKG earlier same day no significant changes or acute changes noted Discharge Plan Discharge Patient Disposition: Home Clinical Impression: Cellulitis of left elbow, Acute chest wall pain, Alcoholic cirrhosis of liver Condition: Stable Prescriptions: New tramadol 50 mg tablet 50 mg PO Q6H PRN (Reason: pain) Qty: 14 0RF cephalexin 500 mg capsule 500 mg PO TID 7 Days Qty: 21 0RF No Action cholecalciferol (vitamin D3) 50 mcg (2,000 unit) capsule 50 mcg PO QAM lisinopril 40 mg tablet 40 mg PO QAM metoprolol succinate 200 mg tablet extended release 24 hr 100 - 200 mg PO DAILY albuterol sulfate 90 mcg/actuation HFA aerosol inhaler 2 puff inhalation Q6H PRN (Reason: shortness of breath or wheezing) Qty: 8.5 3RF furosemide 40 mg tablet 80 mg PO BID duloxetine 30 mg capsule,delayed release(DR/EC) PO calcium carbonate-vitamin D3 [Oyster Shell Calcium-Vit D3] 500 mg-5 mcg (200 unit) tablet 1 tab PO ONCE magnesium citrate Solution 300 ml PO DAILY Qty: 296 2RF Rx Instructions: take as directed for colonoscopy docusate sodium 100 mg tablet 100 mg PO DAILY Qty: 4 0RF Rx Instructions: take as directed for colonoscopy Eliquis 5 mg tablet 5 mg PO BID Qty: 60 3RF gabapentin 600 mg Tablet 1,200 mg PO BID omega-3 fatty acids 1,000 mg Capsule 1,000 mg PO BID omeprazole 40 mg Capsule,Delayed Release(Dr/Ec) 40 mg PO QAM sildenafil 100 mg Tablet 100 mg PO Q7D PRN (Reason: Erectile Dysfunction) Rx Instructions: limit 4 doses per month metformin 500 mg Tablet Extended Release 24 Hr 500 mg PO QAM potassium chloride 20 mEq Tablet Extended Release 20 meq PO QAM alprostadil 10 mcg Syringe See Rx Instructions .ROUTE .COMPLEX Rx Instructions: 10 mcg intra-cavernosally as needed aspirin 325 mg tablet 325 mg PO QAM testosterone 1.62 % (20.25 mg/1.25 gram) Gel In Packet 1 packet transdermal .EVERY 2 DAYS Discharge Orders: Discharge ED (Routine); Ordered 05/08/25 Ordered By: Luis Angulo Referrals: Allison Tinsley MD [Primary Care Provider, Family Practice] Discharge Diet: Usual diet Discharge Activity: Resume usual activity Patient Instructions: Opioid Safety, Pain Management, Patient Portal & Foster Instructions Activity Restrictions/Additional Instructions: Thank you for choosing [facility] for your healthcare needs today. It is very important that you follow up as instructed or that you return to the Emergency Department should you have concerns or if your condition changes or worsens in any way. Emergency department visits are focused on emergent conditions, in some cases you may require further evaluation on an outpatient basis. You were seen in the emergency room with elbow pain and some chest discomfort. Chest discomfort appears to be musculoskeletal. Elbow x-ray showed some joint effusion but your white count was normal CT shows a overlying cellulitis and some bursitis. You can use ibuprofen or Aleve also gave you tramadol for pain and start you on oral antibiotics Keflex 1 3 times a day. (Please note that included in your discharge packet is information concerning opioid safety and pain management. 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
[2025-05-08 15:11] LABS: Troponin(5th) Baseline 14 ng/L (0-15)
--- NOTE | 2025-05-08 15:46 | USR_ITS ---
PROCEDURE INFORMATION: Exam: US Abdomen, Limited; Right Upper Quadrant Exam date and time: 05/08/2025 4:26 PM Age: 59 years old Clinical indication: Abnormal findings; Abnormal lab test; Elevated liver enzymes; Additional info: Abnormal lfts TECHNIQUE: Imaging protocol: Real time ultrasound of the abdomen with image documentation. Limited exam focused on the right upper quadrant. COMPARISON: PT PET skull to thigh SUBS [id number] 06/20/2023 9:37 AM FINDINGS: Liver: Liver has a cirrhotic morphology. Liver mass is not identified. Gallbladder: Normal. No gallstones. There is no gallbladder wall thickening. Biliary ducts: Common bile duct measures 4 mm. Pancreas: Obscured due to bowel gas and body habitus. Right kidney: Right kidney measures 12 cm. No right renal mass or hydronephrosis. US/US liver [id number] IMPRESSION: 1. Cirrhotic liver morphology. 2. No other acute disease identified in the right upper quadrant.
[2025-05-08 16:32] VITALS: PULSE 89; O2SAT 98
--- NOTE | 2025-05-08 16:43 | CTR_ITS ---
PROCEDURE INFORMATION: Exam: CT Left Upper Extremity Without Contrast, Elbow Exam date and time: 05/08/2025 5:27 PM Age: 59 years old Clinical indication: Pain; Elbow; Left TECHNIQUE: Imaging protocol: Computed tomography of the left upper extremity without contrast. Exam focused on the elbow. Radiation optimization: All CT scans at this facility use at least one of these dose optimization techniques: automated exposure control; mA and/or kV adjustment per patient size (includes targeted exams where dose is matched to clinical indication); or iterative reconstruction. COMPARISON: CR XR elbow LT min 3V* [id number] 05/08/2025 2:31 PM RADIATION DOSE METRICS: Total DLP (mGy-cm): 146.15 FINDINGS: Bones/joints: No acute fractures. Joint spaces are within normal limits. Significant elbow effusion is not identified. Soft tissues: 4 cm region of skin and soft tissue thickening overlies the olecranon. 20 mm x 4 mm linear collection of fluid within the posterior area of skin thickening. Moderate dorsal subcutaneous edema and swelling over the elbow, distal arm and proximal forearm. CT/CT elbow LT wo con* [id number] IMPRESSION: 1. No acute fractures. 2. No CT evidence for significant elbow effusion. 3. Olecranon bursitis. 4. Cellulitis surrounds the posterior aspect of the elbow.
--- NOTE | 2025-05-08 16:55 | ECG_ITS ---
[facility]: [facility]25-[facility]08 Pat Name: Rahat Ashley Department: Room: Gender: Male [employer]: : 1965 Requested By: Luis Whittington Order Number: [id number] Willi MD: Angela Solares M.D. Measurements Intervals [place] Rate: 97 P: 0 AL: 0 QRS: 3 QRSD: 107 T: 44 QT: 398 QTc: 507 Interpretive Statements ATRIAL FIBRILLATION POSSIBLE RIGHT VENTRICULAR CONDUCTION DELAY [RSR (QR) IN V1/V2] ABNORMAL RHYTHM ECG Compared to ECG 05/08/2025 15:04:53 Incomplete right bundle-branch block no longer present Electronically Signed On 05-10-2025 20:25:15 CDT by Angela Solares M.D. [email or web address]
[2025-05-08 17:24] VITALS: BP 124/94; PULSE 90; O2SAT 98
[2025-05-08 17:34] LABS: Troponin 5 2HR 13.52 ng/L (0-15)
[2025-05-08 17:37] LABS: Troponin 5 2HR Delta -0.48 ABS# (0-10)
[2025-05-08 18:17] VITALS: BP 129/102; PULSE 90; O2SAT 99
== END 2025-05-08 18:27 | disposition home or self-care (01) ==
PROVIDERS: Emergency Provider Family Medicine; PCP Family Medicine
DX: L03.114 Cellulitis of left upper limb (principal); R07.89 Other chest pain; K70.30 Alcoholic cirrhosis of liver without ascites; Z79.01 Long term (current) use of anticoagulants; Z79.82 Long term (current) use of aspirin; Z87.891 Personal history of nicotine dependence; I11.0 Hypertensive heart disease with heart failure; I50.9 Heart failure, unspecified
CPT/HCPCS: 36415; 70450; 71045; 73080; 73200; 76705; 80053; 84484; 85025; 93005; 99285

== ENCOUNTER → 2025-05-09 11:43 | Outpatient (BNVA) | payer OTHER, SELFPAY | PROVIDERS: PCP Family Medicine; Visit Provider Internal Medicine | DX: E11.9 Type 2 diabetes mellitus without complications (principal) | CPT/HCPCS: 83036 ==

== ENCOUNTER → 2025-05-14 14:15 | Outpatient (BNVA) | payer OTHER, SELFPAY | PROVIDERS: PCP Family Medicine; Visit Provider Internal Medicine | DX: I48.91 Unspecified atrial fibrillation (principal); Z79.01 Long term (current) use of anticoagulants; Z79.82 Long term (current) use of aspirin; I11.0 Hypertensive heart disease with heart failure; I50.9 Heart failure, unspecified; Z87.891 Personal history of nicotine dependence | CPT/HCPCS: 99213 ==